=== PATIENT | male | born 1945 | race Caucasian/White ===

== ENCOUNTER → 2017-11-21 09:14 | Outpatient (CLI) | payer MEDICARE, SELFPAY ==
--- NOTE | 2017-11-21 | DI.ECHO.S_ITS ---
[facility]---------+ [facility] +---------+ : : [address] : : : [place], [place] : : : : [id number] : : : : Phone: [phone] Echocardiogram Report + + :Name: BRANDI HERRING Study Date: 11/21/2017 Height: 72 in : :[facility] Exam Location: [facility] Weight: 196 lb : : Gender: Male BSA: 2.1 m2 : :: 1945 Age: 72 yrs BP: 122/62 mmHg: :Reason For Study: MVP : : Performed By: Lorne Pino : :Referring: MICHAEL NUNEZ : + + Interpretation Summary Left ventricular size is at the upper limits of normal with systolic function that is low normal with the ejection fraction visually estimated to be 50-55% with septal motion consistent with a post-operative state but no other focal abnormality. Assessment of diastolic parameters indicates normal left ventricular diastolic function and normal filling pressures. Since the previous study, left ventricular size has markedly improved and systolic function is slightly less dynamic. There has been normalization of filling pressures. The right ventricle is at the upper limits of normal in size and right ventricular systolic function is normal, and appears unchanged compared to the previous study. The right ventricular systolic pressure is estimated at 26 mmHg assuming a right atrial pressure of 3 mm Hg, and which is markedly lower compared to the previous study. The left atrium is severely dilated and has significantly decreased in size since the prior echo exam. The right atrium is moderately dilated and has mildly decreased in size The posterior mitral leaflet is thickened and fixed, consistent with prior mitral repair surgery with only trace mitral regurgitation that is markedly improved compared to the previous study. There is mild tricuspid regurgitation that is unchanged from the previous study. There is mild pulmonic regurgitation that is slightly more prominent compared to the previous study. The ascending aorta and aortic arch are mild-moderately enlarged but essentially unchanged compared to the previous study. The patient was in sinus bradycardia with heart rates between 43-51 bpm during the exam which is slightly slower compared to the previous study. Procedure: A two-dimensional transthoracic echocardiogram with color flow and Doppler was performed. The study quality was technically good. Comparison is made with the echocardiogram of 12/09/16. The patient was in sinus bradycardia with heart rates between 43-51 bpm during the exam. This is slightly slower compared to the previous study. Left Ventricle: Left ventricular size is at the upper limits of normal. There is normal left ventricular wall thickness. Left ventricular systolic function is low normal. The ejection fraction is estimated to be 50-55%. Septal motion is consistent with post-operative state. Assessment of diastolic parameters indicates normal left ventricular diastolic function and normal filling pressures. Since the previous study, left ventricular size has markedly improved and systolic function is slightly less dynamic. There has been normalization of filling pressures. Right Ventricle: The right ventricle is at the upper limits of normal in size. The right ventricular systolic function is normal. This is unchanged compared to the previous study. Atria: The left atrium is severely dilated. The left atrium has significantly decreased in size since the prior echo exam. The right atrium is moderately dilated. The right atrium has mildly decreased in size since the prior echo exam. The interatrial septum is intact with no evidence for an atrial septal defect. Mitral Valve: The posterior mitral leaflet is thickened and fixed consistent with prior mitral repair surgery. An annuloplasty ring is noted in the mitral position. There is trace mitral regurgitation. This is markedly improved compared to the previous study. Aortic Valve: The aortic valve is trileaflet. The aortic valve opens well. No aortic regurgitation is present. Tricuspid Valve: The tricuspid valve is normal in structure and function. There is mild tricuspid regurgitation. The right ventricular systolic pressure is estimated at 26 mmHg assuming a right atrial pressure of 3 mm Hg. This is markedly lower compared to the previous study. Pulmonic Valve: The pulmonic valve is normal in structure and function. There is mild pulmonic regurgitation. This is slightly more prominent compared to the previous study. Great Vessels: The aortic root is normal size. The ascending aorta is mild- moderately enlarged. The aortic arch is mild-moderately enlarged. This is essentially unchanged compared to the previous study. The pulmonary artery is normal size. Pericardium/ Pleura There is no pericardial effusion. There is no pleural effusion. MMode/2D Measurements & Calculations LVIDd: 5.6 cm Ao root diam: 3.7 cm LVIDs: 4.0 cm Aortic Jxn: 2.8 cm FS: 28.7 % asc Aorta Diam: 4.0 cm EPSS: 0.18 cm Ao Arch Diam (Prox Trans): 3.4 cm IVSd: 1.1 cm LVPWd: 1.2 cm LV cazares. diameter/BSA (cm/m^2): 2.6 LV sys. diameter/BSA (cm/m^2): 1.9 LA A2 area: 27.5 cm2 RA long axis: 5.4 cm LA A4 area: 30.7 cm2 RA area: 23.4 cm2 LA length (vol): 6.3 cm RA vol: 85.3 ml LA vol: 114.4 ml RA : 40.4 ml/m2 LA vol index: 54.2 ml/m2 RVD1 (basal): 4.0 cm RVD2 (mid): 3.9 cm Doppler Measurements & Calculations Ao V2 max: 121.2 cm/sec LVOT Max Justo: 84.2 cm/sec Ao V2 mean: 98.4 cm/sec LV V1 max P.8 mmHg Ao max P.9 mmHg LV V1 VTI: 21.0 cm Ao mean P.0 mmHg sev ratio: 0.70 Ao V2 VTI: 29.8 cm MV E max justo: 103.8 cm/sec TR max justo: 237.9 cm/sec MV A max justo: 89.7 cm/sec TR max P.6 mmHg MV E/A: 1.2 PA V2 max: 77.5 cm/sec Med Peak E' Justo: 18.6 cm/sec PA V2 mean: 56.1 cm/sec E/E' med: 5.6 PA mean P.4 mmHg Lat Peak E' Justo: 6.9 cm/sec PA pr(Accel): 36.6 mmHg E/E' lat: 15.1 PA Accel Time: 0.08 sec E/e' average: 10.3 MV dec time: 0.36 sec Reading Physician:PM
== END ==
PROVIDERS: PCP Physician Assistant; Visit Provider Specialist
DX: I07.1 Rheumatic tricuspid insufficiency (principal); R00.1 Bradycardia, unspecified
CPT/HCPCS: 93306

== ENCOUNTER → 2018-03-07 09:09 | Outpatient (CLI) | payer MEDICARE, SELFPAY ==
[2018-03-07 11:44] LABS: Alanine Aminotransferase 33 IU/L (21-72); Albumin 3.9 g/dL (3.5-5.0); Albumin Globulin Ratio 1.9 (1.0-2.8); Alkaline Phosphatase 100 U/L (38-126); Aspartate Aminotransferase 29 IU/L (17-59); BUN Creatinine Ratio 18.6 (6-22); Bilirubin Total 0.8 mg/dL (0.2-1.3); Blood Urea Nitrogen 26 mg/dL (9-20); Calcium 9.7 mg/dL (8.4-10.2); Carbon Dioxide 28 mmol/L (22-32); Chloride 106 mmol/L (98-107); Estimated Glomerular Filt Rate 50.1 mL/min (>60); Globulin 2.1 g/dL (1.7-4.1); Glucose 102 mg/dL (80-110); HEMOLYSIS < 15 (0-50); Potassium 4.8 mmol/L (3.4-5.1); Sodium 145 mmol/L (137-145)
[2018-03-10 12:24] LABS: Lipoprofile NMR SEE SEPARATE REPORTS
--- NOTE | 2018-06-12 11:42 | ONC.NAV ---
*Sent bereavement card.
== END ==
PROVIDERS: PCP Physician Assistant; Visit Provider Specialist
DX: E78.2 Mixed hyperlipidemia (principal)
CPT/HCPCS: 36415; 80053; 83704

== ENCOUNTER 2018-03-13 23:31 | Emergency (ER) | payer MEDICARE, SELFPAY ==
[2018-03-13 23:37] VITALS: BP 128/78; PULSE 60; RESP 16; TEMP 37.1; O2SAT 97
--- NOTE | 2018-03-14 00:02 | DI.US.S_ITS ---
PROCEDURE: US ABDOMEN COMPLETE INDICATIONS: severe RUQ pain TECHNIQUE: Real-time scanning was performed of the abdominal and retroperitoneal organs, with image documentation. COMPARISON: [facility], CT, KUB - CT (PN), 10/15/2006, 21:23. FINDINGS: Liver: Liver is normal in size and homogeneous in echotexture. Gallbladder: The gallbladder is contracted. No gallstones. No pericholecystic fluid or sonographic Velasco's sign. Biliary ducts: Intrahepatic bile ducts are non-dilated. Extrahepatic bile duct caliber measures 5.8 mm. Normal is 6-7 mm or less in diameter, or 10 mm or less post-cholecystectomy. Pancreas: Visualized portions of the pancreas are sonographically normal. Spleen: Spleen is normal in size and homogeneous in echotexture. Kidneys: Right kidney is absent consistent with nephrectomy. Left kidney measures 12.0 cm long. No hydronephrosis or nephrolithiasis. No solid masses. Aorta: Visualized aorta is normal in caliber at less than 3 cm. Iliacs: Proximal common iliac arteries are normal in caliber at less than 2.5 cm. IVC: Intrahepatic inferior vena cava is obscured by overlying bowel gas. Miscellaneous: No free abdominal fluid. IMPRESSION: 1. Absence of right kidney consistent with nephrectomy. 2. No ultrasound findings to explain severe right upper quadrant abdominal pain. 3. Contracted gallbladder. Dictated by: Torrey Maciel M.D. on 03/14/2018 at 8:13 Approved by: Torrey Maciel M.D. on 03/14/2018 at 8:16
--- NOTE | 2018-03-14 00:36 | ED.ABDPAIN ---
HPI - Abdominal Pain General Chief Complaint: Abdominal Pain Stated Complaint: sharp pain in abdomen recent kidney removal Time Seen by Provider: 03/13/18 23:50 Source: patient and family Mode of arrival: ambulatory Limitations: no limitations History of Present Illness HPI narrative: 72-year-old male with history of renal cell carcinoma and mitral valve disease presents with a chief complaint of right upper quadrant pain for the past few days. Patient denies any palliation or radiation but states that is much worse with a deep breath or with a cough. He has had a cough for some time but denies any productive sputum or fever. He denies any shortness of breath. He denies nausea, vomiting or diarrhea. He has had no change in bowel habits nor and urinary complaints. He denies any history of the same. MD complaint: abdominal pain Onset (ago): day(s) Pain Consistency: intermittent Location: RUQ Severity: moderate Quality: stabbing and sharp Radiation: none Migration to: no migration Exacerbating factors: movement and other (Cough or deep breath) Associated symptoms: denies other symptoms Related Data Previous Rx's Medication Instructions Recorded doxycycline hyclate 100 mg PO BID #20 tab 03/14/18 Allergies Allergy/AdvReac Type Severity Reaction Status Date / Time No Known Drug Allergies Allergy Verified 03/13/18 23:41 Review of Systems Review of Systems All systems reviewed & are unremarkable except as noted in HPI and below Constitutional Denies chills, Denies fever(s), Denies lethargy and Denies weakness Eyes Denies change in vision, Denies eye discharge, Denies irritation and Denies loss of vision ENT Ears, Nose, Mouth, and Throat: Denies change in voice, Denies neck pain and Denies sore throat Cardiovascular Denies chest pain, Denies irregular heart rhythm, Denies lightheadedness, Denies palpitations, Denies dyspnea, Denies dyspnea on exertion and Denies orthopnea Respiratory Reports cough, Denies dyspnea, Denies dyspnea on exertion and Denies wheezing Gastrointestinal Gastrointestinal: Reports abdominal pain, Denies change in bowel habits, Denies diarrhea, Denies nausea and Denies vomiting Genitourinary Denies hematuria, Denies flank pain, Denies urinary incontinence and Denies urinary urgency Musculoskeletal Denies neck pain Integumentary/Breasts Denies pruritus, Denies erythema, Denies rash and Denies wounds Neurologic Denies confusion, Denies loss of vision and Denies weakness Psychiatric Denies anxiety, Denies confusion, Denies depression, Denies homicidal ideation and Denies suicidal ideation Endocrine Denies palpitations Hematologic/Lymphatic Denies easy bruising Allergic/Immunologic Denies wheezing PFSH Medical History Renal cell carcinoma (Acute) Surgical History History of nephrectomy (Acute) Social History Smoking Status: Former smoker Exam Narrative Exam Narrative: Pleasant 72-year-old male is largely absent of any significant distress but deep breath, cough resulted in the obvious significant sharp pain Initial Vital Signs Initial Vital Signs: Vital Signs Temperature 98.8 F 03/13/18 23:37 Pulse Rate 60 03/13/18 23:37 Respiratory Rate 16 03/13/18 23:37 Blood Pressure 128/78 03/13/18 23:37 Pulse Oximetry 97 03/13/18 23:37 Const General: cooperative, well developed and in distress Nutritional Appearance: well nourished Orientation: alert, awake, oriented x3 and not confused HENMT Head: normocephalic and atraumatic Ears: external ears normal and TM's normal bilaterally Nose: external nose normal and No nasal discharge Face and sinus: sinuses nontender, face symmetric, no sinus tenderness and No dry mucous membranes Mouth: oral mucosae normal and moist mucous membranes Teeth and gingiva: dentition normal Throat: tonsils normal and uvula midline Eyes General: appearance normal, both eyes and all related structures Eyelids: eyelids normal Conjunctivae: conjunctivae normal Sclera: sclerae normal Pupils: PERRL EOM: EOM intact bilaterally Chest Other: severe sharp pain with palpation of costal margin Resp Effort & Inspection: normal respiratory effort, able to speak in complete sentences, cough, no respiratory distress and no use of accessory muscles Auscultation: clear to auscultation bilaterally, no rales, no rhonchi and no wheezes Cardio Rate: regular rate Rhythm: regular rhythm Heart Sounds: no click, no gallops, no murmurs and no rubs Pulses: normal peripheral pulses GI Inspection: non-distended Palpation: soft, no hepatosplenomegaly, No guarding, No pulsatile mass and tender (RUQ pain to palp) Auscultation: normal bowel sounds Course Orders Ordered: ED Orders 03/13/18 23:49 Complete Blood Count AUTO DIFF Stat Comprehensive Metabolic Panel Stat Lipase Stat 03/14/18 00:02 US abdomen complete Stat 03/14/18 00:37 CT abdomen pelvis w con Stat Discontinued Medications Doxycycline Hyclate (Vibramycin) 100 mg PO NOW ONE Stop: 03/14/18 03:10 Last Admin: 03/14/18 03:29 Dose: 100 mg Sodium Chloride (Normal Saline 0.9%) 1,000 mls @ 150 mls/hr IV CONT ENRIQUE Last Infusion: 03/14/18 03:26 Dose: 1,000 mls/hr Admin: 03/14/18 01:31 Dose: 150 mls/hr Vital Signs - 8 hr 03/13/18 23:37 03/14/18 02:00 03/14/18 03:36 Temperature 98.8 F Pulse Rate 60 56 L 88 Respiratory Rate 16 18 17 Blood Pressure 128/78 Blood Pressure [Left Arm] 143/80 H 142/68 H Pulse Oximetry 97 98 MDM - Abdominal Pain Differential Diagnosis Differential diagnosis: Likely abdominal pain, acute appendicitis, calculus of kidney, constipation, diverticulitis, pancreatitis, small bowel obstruction and other Medical Records Attestation: I reviewed the patient's medical records. Lab Data Attestation: I reviewed the patient's lab results. Result diagrams: 03/14/18 00:55 03/14/18 00:55 Lab Results 03/14/18 03/14/18 Range/Units 00:55 00:55 WBC 9.5 (4.5-11.0) X10^3/uL RBC 4.40 L (4.5-5.9) X10^6/uL Hgb 13.1 L (13.5-17.5) g/dL Hct 38.7 L (41-53) % MCV 88.0 (80-100) fL MCH 29.7 (26-34) PG MCHC 33.8 (30-36) % RDW 13.1 (11.6-14.8) % Plt Count 181 (150-400) X10^3/uL Neut % (Auto) 68.8 (50-75) % Lymph % (Auto) 18.8 L (25-40) % [place] % (Auto) 9.1 (3-14) % Eos % (Auto) 2.7 (2-4) % Baso % (Auto) 0.6 (0-2) % Neut # (Auto) 6600 H (2184-6492) /uL Sodium 145 (137-145) mmol/L Potassium 4.4 (3.4-5.1) mmol/L Chloride 108 H (98-107) mmol/L Carbon Dioxide 30 (22-32) mmol/L BUN 30 H (9-20) mg/dL Creatinine 1.50 H (0.66-1.25) mg/dL Estimated GFR 46.3 L (>60) mL/min BUN/Creatinine Ratio 20.0 (6-22) Glucose 120 H (80-110) mg/dL Calcium 9.4 (8.4-10.2) mg/dL Total Bilirubin 0.4 (0.2-1.3) mg/dL AST 27 (17-59) IU/L ALT 32 (21-72) IU/L Alkaline Phosphatase 92 (38-126) U/L Total Protein 6.0 L (6.3-8.2) g/dL Albumin 3.7 (3.5-5.0) g/dL Globulin 2.3 (1.7-4.1) g/dL Albumin/Globulin Ratio 1.6 (1.0-2.8) Lipase 68 (23-300) U/L Point of care testing: Urine Dip Bedside Urine Glucose Negative Bedside Urine Bilirubin - Negative Bedside Urine Ketone - Negative Urine Specific [place] 1.025 Bedside Urine Occult Blood - Negative Bedside Urine pH 6.0 Bedside Urine Protein - Negative Bedside Urine Urobilinogen - Negative Bedside Urine Nitrite - Negative Bedside Urine Leukocytes - Negative Esterase Imaging Data CT scan - abdomen: Radiologist's impression: No acute intra-abdominal findings. Right nephrectomy with small area of soft tissue thickening and stranding likely postsurgical changes. Lower small right pleural effusion with minimal right lower lobe atelectasis, early infiltrate or pneumonia is not excluded US - abdomen: Radiologist's impression: Contracted gallbladder otherwise normal MDM Narrative Medical decision making narrative: Patient with extensive medical history presents with severe, reproducible sharp and stabbing right upper quadrant pain with palpation, cough or deep breath. He has had no productive cough nor fever or chills. He denies nausea or vomiting. Ultrasound demonstrates an essentially normal ultrasound, labs are normal, CT of abdomen suggest pleural effusion with atelectasis and possible infiltrate. Differential diagnosis considered includes postsurgical complications, gallbladder disease, bowel problems, pleuritic diagnoses such is pneumonia versus other Discharge Plan Departure Patient Disposition: Home Clinical Impression: Pneumonia Discharge Date/Time: 03/14/18 03:39 Interventions: ED Discharge Assessment Last Done: 03/14/18 03:38 Instructions: DI for Pneumonia -- Adult Activity Restrictions/Additional Instructions: *You have been diagnosed with [ right lower lobe pneumonia with pleurisy ] *What to do: *Take medications as directed. Your prescription has been electronically transmitted to the [facility] and not pertinent request *Follow up with your primary care provider in 2-3 days, call for an appointment. Let them know you were seen in the Emergency Department and that we ask that you be seen in follow up *Return to ER if you should have any new, worsening or concerning symptoms, such as [ ] Prescriptions: New doxycycline hyclate 100 mg tablet 100 mg PO BID Qty: 20 RF: 0 Referrals: Judy Leach PA-C [Primary Care Provider] -
--- NOTE | 2018-03-14 00:37 | DI.CT.S_ITS ---
PROCEDURE: CT ABDOMEN PELVIS W CON INDICATIONS: 72 old male with severe right flank pain, recent nephrectomy. TECHNIQUE: After the administration of intravenous contrast, 5 mm thick sections acquired from the diaphragm to the symphysis. 5 mm coronal and sagittal reformats were acquired. For radiation dose reduction, the following was used: automated exposure control, adjustment of mA and/or kV according to patient size. COMPARISON: [facility], US, US ABDOMEN COMPLETE, 03/14/2018, 0:24. [facility], CT, KUB - CT (PNL), 10/15/2006, 21:23. FINDINGS: Image quality: Excellent. ABDOMEN: Lung bases: Right lower lobe opacity may be infiltrate or atelectasis. There is a small right effusion. Heart size is mildly increased. Solid organs: There are multiple small indeterminate low-density nodules in liver. Liver is normal in size and enhancement. Gallbladder is normal. Biliary system is non dilated. Pancreas enhances normally. Spleen is normal in size and enhancement. No adrenal nodules. Right kidney is surgically absent. Left kidney demonstrates normal size and enhancement. Several renal calculi are present measuring up to 5 mm. There is mild left renal pelviectasis. Peritoneum and bowel: Stomach is mildly distended. There is mild gastric antral thickening. Bowel loops demonstrate normal caliber. Pharyngeal numerous colonic diverticula scattered in colon. No evidence for acute diverticulitis. Moderate to large amount of stool in colon. No free fluid or air. Nodes and vessels: No retroperitoneal or mesenteric adenopathy by size criteria. Aorta and inferior vena cava are normal in size. Miscellaneous: No ventral hernias. PELVIS: Genitourinary: Bladder wall thickness is normal. Miscellaneous: No inguinal hernias or adenopathy. Bones: No suspicious bony lesions. No vertebral body compression fractures. Degenerative changes noted in lumbar spine. IMPRESSION: 1. Absence of right kidney consistent with right nephrectomy. 2. Right basilar pneumonia or atelectasis. There is a small right effusion. 3. Left nephrolithiasis. There is mild left pelviectasis. 4. Diverticulosis without acute diverticulitis. 5. Mild gastric antral thickening which may be secondary to artifact (peristalsis) or mild antritis. 6. Small indeterminate low density nodules in liver are most likely hepatic cysts. No significant discrepancy with the [facility]ifter radiology preliminary report. Dictated by: Torrey Maciel M.D. on 03/14/2018 at 8:00 Approved by: Torrey Maciel M.D. on 03/14/2018 at 8:13
[2018-03-14 01:05] LABS: Add Manual Diff / Slide Review NO; Basophils Percent Auto 0.6 % (0-2); Eosinophils Percent Auto 2.7 % (2-4); Hematocrit 38.7 % (41-53); Hemoglobin 13.1 g/dL (13.5-17.5); Lymphocytes Percent Auto 18.8 % (25-40); Mean Corpuscular HGB Conc 33.8 % (30-36); Mean Corpuscular Hemoglobin 29.7 PG (26-34); Monocytes Percent Auto 9.1 % (3-14); Neutrophils Absolute Auto 6600 /uL (3000-5900); Neutrophils Percent Auto 68.8 % (50-75); Platelet Count 181 X10^3/uL (150-400); Red Cell Distribution Width 13.1 % (11.6-14.8); White Blood Cell Count 9.5 X10^3/uL (4.5-11.0)
[2018-03-14 01:09] LABS: Alanine Aminotransferase 32 IU/L (21-72); Albumin 3.7 g/dL (3.5-5.0); Albumin Globulin Ratio 1.6 (1.0-2.8); Alkaline Phosphatase 92 U/L (38-126); Aspartate Aminotransferase 27 IU/L (17-59); Bilirubin Total 0.4 mg/dL (0.2-1.3); Blood Urea Nitrogen 30 mg/dL (9-20); Calcium 9.4 mg/dL (8.4-10.2); Carbon Dioxide 30 mmol/L (22-32); Chloride 108 mmol/L (98-107); Estimated Glomerular Filt Rate 46.3 mL/min (>60); Globulin 2.3 g/dL (1.7-4.1); Glucose 120 mg/dL (80-110); HEMOLYSIS 16 (0-50); Lipase 68 U/L (23-300); Potassium 4.4 mmol/L (3.4-5.1); Sodium 145 mmol/L (137-145)
[2018-03-14] MEDS: SODIUM CHLORIDE 0.9% 1,000 ML 150 ML IV (01:31)
[2018-03-14 02:00] VITALS: BP 143/80; PULSE 56; RESP 18; O2SAT 98
[2018-03-14] MEDS: DOXYCYCLINE HYCLATE 100 MG TABLET PO (03:29)
[2018-03-14 03:36] VITALS: BP 142/68; PULSE 88; RESP 17
== END 2018-03-14 03:39 | disposition home or self-care (01) ==
PROVIDERS: Emergency Provider Emergency Medicine; PCP Physician Assistant
DX: J18.9 Pneumonia, unspecified organism (principal)
CPT/HCPCS: 36591; 74177; 76700; 80053; 81003; 83690; 85025; 96360; 96361; 99283; 99285; Q9967

== ENCOUNTER → 2018-03-28 09:02 | Outpatient (CLI) | payer MEDICARE, SELFPAY ==
--- NOTE | 2018-03-28 | DI.RAD.S_ITS ---
PROCEDURE: XR RIBS RT 2V with PA chest INDICATIONS: Intercostal pain/Dorsalgia TECHNIQUE: 4 views of the right ribs were acquired, in addition to a PA frontal view chest presumed prior CABG.. COMPARISON: None. FINDINGS: Surgical changes and devices: Sternotomy wires,. Bones and chest wall: No fractures or dislocations. No suspicious bony lesions. Overlying soft tissues appear unremarkable. Lungs and pleura: The visualized lung appears clear. No pleural effusions or pneumothorax are visible. IMPRESSION: Prior sternotomy, presumed prior CABG. Source of intercostal and dorsal pain is not seen. Dictated by: Kofi Garduno M.D. on 03/28/2018 at 9:43 Approved by: Kofi Garduno M.D. on 03/28/2018 at 9:44
--- NOTE | 2018-03-28 | DI.RAD.S_ITS ---
PROCEDURE: XR LUMBAR SPINE 2-3V INDICATIONS: Intercostal pain/Dorsalgia TECHNIQUE: 3 views of the lumbar spine were acquired. COMPARISON: [facility], US, US ABDOMEN COMPLETE, 03/14/2018, 0:24. [facility], CR, XR RIBS RT 2V, 03/28/2018, 8:45. [facility], CT, CT ABDOMEN PELVIS W CON, 03/14/2018, 0:55. [facility], CT, KUB - CT (PNL), 10/15/2006, 21:23. FINDINGS: Bones: 5 [id number] vertebrae are present. There is normal bony alignment. There are adjacent L1-L2 vertebral body endplate mild compression fractures, chronicity uncertain. No suspicious bony lesions. Soft tissues: Overlying bowel gas pattern is normal. No suspicious soft tissue calcifications. IMPRESSION: L1-L2 mild vertebral body endplates adjacent compression fractures, chronicity uncertain. These were not present on CT KUB imaging 10/15/16, 11 years ago. A comparison set of sagittal views through this area from 03/14/18 is reviewed, and what appears to be a short term interval worsening of appearance at that intervertebral level is present on the study from today. Therefore, suspect acute mild compression fracture at the upper endplate of L2 and the lower endplate of L1. MR scanning could be utilized to accurately establish whether the abnormalities are chronic or acute. Dictated by: Kofi Garduno M.D. on 03/28/2018 at 9:44 Approved by: Kofi Garduno M.D. on 03/28/2018 at 9:52
== END ==
PROVIDERS: PCP Physician Assistant; Visit Provider Physician Assistant
DX: R07.82 Intercostal pain (principal); M54.9 Dorsalgia, unspecified; M48.56XA Collapsed vertebra, not elsewhere classified, lumbar region, initial encounter for fracture
CPT/HCPCS: 71100; 72100

== ENCOUNTER 2018-03-29 13:40 | Emergency (ER) | payer MEDICARE, SELFPAY ==
[2018-03-29 13:42] VITALS: BP 128/78; PULSE 70; RESP 18; TEMP 36.7; O2SAT 98; BMI 26.4
--- NOTE | 2018-03-29 14:01 | DI.RAD.S_ITS ---
PROCEDURE: XR CHEST 2V INDICATIONS: h/o right basilar pne vs atelectasis. No better after treatm TECHNIQUE: 2 views of the chest were acquired. COMPARISON: [facility], CT, CT ABDOMEN PELVIS W CON, 03/14/2018, 0:55. [facility], CR, XR RIBS RT 2V, 03/28/2018, 8:45. FINDINGS: Surgical changes and devices: Sternal wires. Lungs and pleura: No pleural effusions or pneumothorax. Lungs are clear. Mediastinum: Mediastinal contours are normal. Heart size is normal. Bones and chest wall: No suspicious bony abnormalities. Soft tissues appear unremarkable. IMPRESSION: No acute pulmonary process. Dictated by: Poonam Tamez M.D. on 03/29/2018 at 14:52 Approved by: Poonam Tamez M.D. on 03/29/2018 at 14:53
[2018-03-29 14:18] LABS: Hematocrit 38.9 % (41-53); Mean Corpuscular HGB Conc 33.5 % (30-36); Mean Corpuscular Hemoglobin 29.3 PG (26-34); Mean Corpuscular Volume 87.6 fL (80-100); Platelet Count 174 X10^3/uL (150-400); Red Blood Cell Count 4.45 X10^6/uL (4.5-5.9); White Blood Cell Count 11.7 X10^3/uL (4.5-11.0)
[2018-03-29 14:34] LABS: Alanine Aminotransferase 33 IU/L (21-72); Albumin 3.5 g/dL (3.5-5.0); Albumin Globulin Ratio 1.5 (1.0-2.8); Alkaline Phosphatase 106 U/L (38-126); Aspartate Aminotransferase 29 IU/L (17-59); BUN Creatinine Ratio 20.8 (6-22); Bilirubin Total 0.6 mg/dL (0.2-1.3); Blood Urea Nitrogen 27 mg/dL (9-20); Calcium 9.6 mg/dL (8.4-10.2); Carbon Dioxide 26 mmol/L (22-32); Chloride 107 mmol/L (98-107); Estimated Glomerular Filt Rate 54.6 mL/min (>60); Globulin 2.3 g/dL (1.7-4.1); Glucose 124 mg/dL (80-110); HEMOLYSIS < 15 (0-50); Potassium 3.8 mmol/L (3.4-5.1); Sodium 146 mmol/L (137-145); Total Protein 5.8 g/dL (6.3-8.2)
[2018-03-29 14:44] LABS: Neutrophils Absolute Manual 9009 /uL (3000-5900); Total Cells Counted 100
[2018-03-29 14:46] LABS: RBC Morphology Normal Morphology
--- NOTE | 2018-03-29 15:29 | DI.MRI.S_ITS ---
PROCEDURE: MR LUMBAR SPINE WO/W CON INDICATIONS: back pain, radiates to front, hx nephrectomy 2nd ca TECHNIQUE: Noncontrast sagittal T1 spin echo and T2 fast spin echo, sagittal STIR, axial T1 and T2 fast spin echo through the lumbar spine. In cases with scoliosis, additional coronal T2 fast spin echo may be performed. After the administration of contrast, sagittal and axial T1 spin echo with fat saturation through the lumbar spine. COMPARISON: [facility], CT, CT ABDOMEN PELVIS W CON, 03/14/2018, 0:55. [facility], CR, XR CHEST 2V, 03/29/2018, 13:46. [facility], CR, XR LUMBAR SPINE 2-3V, 03/28/2018, 8:45. FINDINGS: Image quality: Excellent. Alignment and curvature: There is normal bony alignment. Marrow: Innumerable foci of abnormal signal can be seen within the bones, with low T1 signal and increased T2-weighted/STIR signal, increased enhancement. Most of these demonstrate a rounded appearance. However, there is relatively prominent involvement of the L1 level on the right side, with also involvement of the posterior elements, as on series 9 image 37. At L2, the majority of the vertebral body is involved. There is a compression deformity seen involving the L1 level, with 30-40% loss height centrally. No posterior displacement fracture fragments can be seen. Spinal cord: Conus medullaris terminates at the L1 level. Visualized spinal cord demonstrates normal signal, without suspicious enhancement. Paraspinous soft tissues: No paravertebral masses or abnormal enhancement. T12-L1: Moderate loss of disc height is seen. Loss of disc signal is seen. Moderate generalized disc bulge is seen. Minimal to mild bilateral neural foraminal narrowing is seen. Moderate central canal narrowing is seen, as on series 6 image 40. L1-L2: At least moderate loss of disc height and disc signal are seen. Moderate disc bulge is seen, which is eccentric to the left. Kxqe-mj-vtlzfuyd facet joint hypertrophy is seen. There is moderate bilateral neural foraminal narrowing seen, left worse than right. Mild central canal narrowing is seen. L2-L3: Mild loss of disc height is seen. Loss of disc signal is seen. Moderate disc bulge is seen, which is eccentric to the right. Mild facet joint hypertrophy is seen. Moderate to severe bilateral neural foraminal narrowing is seen. There is a degree of impingement seen upon the exiting nerve roots. Moderate to severe central canal narrowing is seen. L3-L4: Moderate loss of disc height is seen. Loss of disc signal is seen. Moderate to prominent disc bulge is seen. Moderate to prominent facet hypertrophy is seen. There is moderate to severe bilateral neural foraminal narrowing seen, right worse than left. There is a degree of impingement seen upon the exiting nerve roots. At least moderate central canal narrowing is seen. L4-L5: Moderate to severe loss of disc height is seen. Loss of disc signal is seen. Moderate disc bulge is seen, which is eccentric to the right. Vlyd-py-nqmezmnj facet hypertrophy is seen. There is moderate to severe bilateral neural foraminal narrowing seen, right greater than left. There is a degree of impingement seen upon the exiting nerve roots. Mild central canal narrowing is seen. L5-S1: Moderate loss of disc height is seen. Loss of disc signal is seen. Moderate generalized disc bulge is seen. Moderate facet hypertrophy is seen, left worse than right. There is at least moderate right-sided and moderate to severe left-sided neural foraminal narrowing seen. There is a degree of impingement seen upon the exiting nerve roots. Mild central canal narrowing is seen. IMPRESSION: Innumerable sites of bony metastatic disease until proven otherwise. These are most prominent within the L1 and L2 levels. L1 compression deformity, which is felt most likely be related to a pathologic compression deformity. Multiple levels of degenerative change are seen, including multiple sites of moderate to severe neural foraminal narrowing. Note: Case discussed by telephone with Dr. Mayfield at 4:58 PM on March 29, 2018. Dictated by: Andres Christianson M.D. on 03/29/2018 at 16:49 Approved by: Andres Christianson M.D. on 03/29/2018 at 16:59
--- NOTE | 2018-03-29 15:32 | ED.BACK ---
HPI - Back Pain/Injury General Chief Complaint: Abdominal Pain Stated Complaint: BACK AND RIGHT SIDED RIB PAIN Time Seen by Provider: 03/29/18 15:13 Source: patient Mode of arrival: ambulatory Limitations: no limitations History of Present Illness HPI Narrative: This a 72-year-old male comes to the emergency department with complaint of back pain that radiates to the front on the right. Patient states he has low back pain in the lumbar region and points to L4-L5. He has radiation around to the front on the right. He does have a history of nephrectomy secondary to renal cancer. He does follow with a dust operator for surveillance his last imaging was in the spring. He was evaluated here and was found to have a compression fracture but does not have any recent trauma or injuries that would have likely caused his compression fracture. There is concern about metastases patient was sent evaluation in the ED. Fevers, no cold cough or congestion. No nausea or vomiting. He has recently had a little bit of diarrhea. No new urinary issues. His back pain is actually improved while he has been here in the emergency department without medication. Still has a little bit of right rib pain which he states he does notice. Movement definitely made his symptoms worse although there are improved at this time. He also has a history significant for CABG as well as valve repair. He does not have a valve replacement. He is not on any blood thinners or anticoagulation. Related Data Home Medications Medication Instructions Recorded Confirmed atorvastatin 80 mg PO QPM 03/29/18 03/29/18 tamsulosin 1 cap PO QPM 03/29/18 03/29/18 triamcinolone acetonide 1 applic TOPICAL DIRECTED 03/29/18 03/29/18 Previous Rx's Medication Instructions Recorded oxycodone-acetaminophen 1 tab PO Q4-6H PRN #20 tab 03/29/18 Allergies Allergy/AdvReac Type Severity Reaction Status Date / Time No Known Drug Allergies Allergy Verified 03/13/18 23:41 Review of Systems Review of Systems All systems reviewed & are unremarkable except as noted in HPI and below Constitutional Denies fatigue, Denies fever(s) and Denies night sweats Cardiovascular Denies chest pain, Denies irregular heart rhythm, Denies lightheadedness, Denies palpitations, Denies dyspnea, Denies dyspnea on exertion and Denies orthopnea Respiratory Denies cough, Denies dyspnea, Denies dyspnea on exertion and Denies wheezing Gastrointestinal Gastrointestinal: Denies abdominal pain, Denies change in bowel habits, Reports diarrhea, Denies nausea and Denies vomiting Musculoskeletal Reports as per HPI, Denies abnormal gait, Reports back pain, Denies limited range of motion, Denies numbness and Denies tingling Integumentary/Breasts Reports rash Neurologic Denies abnormal gait, Denies numbness and Denies tingling Endocrine Denies fatigue and Denies palpitations Allergic/Immunologic Denies wheezing PFSH Medical History Renal cell carcinoma (Acute) Surgical History Hx of CABG (Acute) History of nephrectomy (Acute) Social History Smoking Status: Former smoker Exam Initial Vital Signs Initial Vital Signs: Vital Signs Temperature 98.1 F 03/29/18 13:42 Pulse Rate 70 03/29/18 13:42 Respiratory Rate 18 03/29/18 13:42 Blood Pressure 128/78 03/29/18 13:42 Pulse Oximetry 98 03/29/18 13:42 Const General: cooperative, comfortable and well developed Nutritional Appearance: well nourished Orientation: alert, awake, oriented x3 and not confused Resp Effort & Inspection: normal respiratory effort, able to speak in complete sentences, no respiratory distress and no use of accessory muscles Auscultation: clear to auscultation bilaterally, no rales, no rhonchi and no wheezes Cardio Rate: regular rate Rhythm: regular rhythm Heart Sounds: no click, no gallops, no murmurs and no rubs Pulses: normal peripheral pulses GI Inspection: non-distended Palpation: soft, no hepatosplenomegaly, No guarding, No pulsatile mass and No tender Auscultation: normal bowel sounds Back/Spine/Pelvis Back: normal to inspection, No back tenderness, No CVA tenderness and No mass Cervical Spine: No cervical spinal tenderness Thoracic/Lumbar Spine: thoracic and lumbar spine normal to inspection, No thoraco-lumbar ROM limited, No thoraco-lumbar spasm, No thoracic spinal tenderness and No lumbar spinal tenderness Sacroiliac Joints: nontender Skin Rashes: rash noted (Back or abdomen) Neuro Gait: normal gait Course Orders Ordered: ED Orders 03/29/18 14:01 Chest [XR chest 2V] Stat 03/29/18 14:09 CBC manual diff [Complete Blood Count MAN DIFF] Stat Comprehensive Metabolic Panel Stat 03/29/18 15:29 MR lumbar spine wo/w con Stat Consultations Consultation #1: Dr. Gottlieb was paged. He will contact office to have patient set up with an appointment for follow up. Time: 18:23 Vital Signs - 8 hr 03/29/18 13:42 03/29/18 16:40 03/29/18 18:19 Temperature 98.1 F Pulse Rate 70 62 72 Respiratory Rate 18 20 Blood Pressure 128/78 148/83 H Blood Pressure [Right Arm] 115/63 Pulse Oximetry 98 99 98 MDM - Back Pain/Injury Lab Data Attestation: I reviewed the patient's lab results. Result diagrams: 03/29/18 14:09 03/29/18 14:09 Lab Results 03/29/18 03/29/18 Range/Units 14:09 14:09 WBC 11.7 H (4.5-11.0) X10^3/uL RBC 4.45 L (4.5-5.9) X10^6/uL Hgb 13.0 L (13.5-17.5) g/dL Hct 38.9 L (41-53) % MCV 87.6 (80-100) fL MCH 29.3 (26-34) PG MCHC 33.5 (30-36) % RDW 13.0 (11.6-14.8) % Plt Count 174 (150-400) X10^3/uL Total Counted 100 Seg Neutrophils % 77.0 H (38-70) % Lymphocytes % (Manual) 8.0 L (25-45) % Atypical Lymphs % 2.0 H ( - 0) % Monocytes % (Manual) 11.0 (2-11) % Eosinophils % (Manual) 2.0 (2-4) % Neutrophils # (Manual) 9009 H (4277-6892) /uL RBC Morphology Normal morphology Sodium 146 H (137-145) mmol/L Potassium 3.8 (3.4-5.1) mmol/L Chloride 107 (98-107) mmol/L Carbon Dioxide 26 (22-32) mmol/L BUN 27 H (9-20) mg/dL Creatinine 1.30 H (0.66-1.25) mg/dL Estimated GFR 54.6 L (>60) mL/min BUN/Creatinine Ratio 20.8 (6-22) Glucose 124 H (80-110) mg/dL Calcium 9.6 (8.4-10.2) mg/dL Total Bilirubin 0.6 (0.2-1.3) mg/dL AST 29 (17-59) IU/L ALT 33 (21-72) IU/L Alkaline Phosphatase 106 (38-126) U/L Total Protein 5.8 L (6.3-8.2) g/dL Albumin 3.5 (3.5-5.0) g/dL Globulin 2.3 (1.7-4.1) g/dL Albumin/Globulin Ratio 1.5 (1.0-2.8) Imaging Data MRI - lumbar: Radiologist's impression: [address] [address] Magnetic Resonance Report Signed Patient: Toy Barrera#: [id number] : 7Acct:[id number] Age/Sex: 72 / MDate of Service: 03/29/18 Loc: ED Accession Number: [id number] Procedure: MR lumbar spine wo/w con Ordering Provider: Alpa Mayfield D.O. PROCEDURE: MR LUMBAR SPINE WO/W CON INDICATIONS: back pain, radiates to front, hx nephrectomy 2nd ca TECHNIQUE: Noncontrast sagittal T1 spin echo and T2 fast spin echo, sagittal STIR, axial T1 and T2 fast spin echo through the lumbar spine. In cases with scoliosis, additional coronal T2 fast spin echo may be performed. After the administration of contrast, sagittal and axial T1 spin echo with fat saturation through the lumbar spine. COMPARISON: [facility], CT, CT ABDOMEN PELVIS W CON, 03/14/2018, 0:55. [facility], CR, XR CHEST 2V, 03/29/2018, 13:46. [facility], CR, XR LUMBAR SPINE 2-3V, 03/28/2018, 8:45. FINDINGS: Image quality: Excellent. Alignment and curvature: There is normal bony alignment. Marrow: Innumerable foci of abnormal signal can be seen within the bones, with low T1 signal and increased T2-weighted/STIR signal, increased enhancement. Most of these demonstrate a rounded appearance. However, there is relatively prominent involvement of the L1 level on the right side, with also involvement of the posterior elements, as on series 9 image 37. At L2, the majority of the vertebral body is involved. There is a compression deformity seen involving the L1 level, with 30-40% loss height centrally. No posterior displacement fracture fragments can be seen. Spinal cord: Conus medullaris terminates at the L1 level. Visualized spinal cord demonstrates normal signal, without suspicious enhancement. Paraspinous soft tissues: No paravertebral masses or abnormal enhancement. T12-L1: Moderate loss of disc height is seen. Loss of disc signal is seen. Moderate generalized disc bulge is seen. Minimal to mild bilateral neural foraminal narrowing is seen. Moderate central canal narrowing is seen, as on series 6 image 40. L1-L2: At least moderate loss of disc height and disc signal are seen. Moderate disc bulge is seen, which is eccentric to the left. Ritx-bl-wkjjtyqy facet joint hypertrophy is seen. There is moderate bilateral neural foraminal narrowing seen, left worse than right. Mild central canal narrowing is seen. L2-L3: Mild loss of disc height is seen. Loss of disc signal is seen. Moderate disc bulge is seen, which is eccentric to the right. Mild facet joint hypertrophy is seen. Moderate to severe bilateral neural foraminal narrowing is seen. There is a degree of impingement seen upon the exiting nerve roots. Moderate to severe central canal narrowing is seen. L3-L4: Moderate loss of disc height is seen. Loss of disc signal is seen. Moderate to prominent disc bulge is seen. Moderate to prominent facet hypertrophy is seen. There is moderate to severe bilateral neural foraminal narrowing seen, right worse than left. There is a degree of impingement seen upon the exiting nerve roots. At least moderate central canal narrowing is seen. L4-L5: Moderate to severe loss of disc height is seen. Loss of disc signal is seen. Moderate disc bulge is seen, which is eccentric to the right. Sghq-qm-ajmgvsqf facet hypertrophy is seen. There is moderate to severe bilateral neural foraminal narrowing seen, right greater than left. There is a degree of impingement seen upon the exiting nerve roots. Mild central canal narrowing is seen. L5-S1: Moderate loss of disc height is seen. Loss of disc signal is seen. Moderate generalized disc bulge is seen. Moderate facet hypertrophy is seen, left worse than right. There is at least moderate right-sided and moderate to severe left-sided neural foraminal narrowing seen. There is a degree of impingement seen upon the exiting nerve roots. Mild central canal narrowing is seen. IMPRESSION: Innumerable sites of bony metastatic disease until proven otherwise. These are most prominent within the L1 and L2 levels. L1 compression deformity, which is felt most likely be related to a pathologic compression deformity. Multiple levels of degenerative change are seen, including multiple sites of moderate to severe neural foraminal narrowing. Note: Case discussed by telephone with Dr. Mayfield at 4:58 PM on March 29, 2018. Dictated by: Andres Christianson M.D. on 03/29/2018 at 16:49 Approved by: Andres Chrisitanson M.D. on 03/29/2018 at 16:59 [facility] Narrative Medical decision making narrative: Patient's lab work does not show any acute abnormalities he does have a decreased GFR but is improved from his last. BUN is also slightly elevated but this is similar to prior. Patient's imaging was reviewed from recent evaluation and they did recommend MRI for further evaluation and he has no prior trauma that is consistent with a compression fracture. So plan for evaluation here. As patient only has a single kidney elected not to use contrast. rfid technician past Radiology if they would prefer contrast and they were comfortable with it with patient's history of nephrectomy. Patient and were updated that he does have metastases on his L-spine imaging of his MRI. Patient was asked to call his primary care physician in the morning to help set up follow-up and a consult was put out to Oncology for urgent follow-up. Discharge Plan Departure Patient Disposition: Home Clinical Impression: Back pain, Malignant neoplasm metastatic to lumbar spine with unknown primary site Discharge Date/Time: 03/29/18 18:20 Interventions: ED Discharge Assessment Last Done: 03/29/18 18:19 Activity Restrictions/Additional Instructions: Call in the morning to set up follow-up with Judy Leach. Take the disc with your MRI results with you as well. Use also expect a phone call from Oncology if you not heard from them by tomorrow at noon go ahead and call the oncology office. They will want to follow up regarding your metastatic changes and setting up further evaluation. Take medication as needed for pain. This medication can make you sleepy do not drive, perform hazards activities or make any major decisions while taking it. Make sure the take a stool softener with this medication. Prescriptions: New oxycodone-acetaminophen 5-325 mg tablet 1 tab PO Q4-6H PRN (Reason: pain) Qty: 20 RF: 0 No Action atorvastatin 80 mg tablet 80 mg PO QPM RF: 0 triamcinolone acetonide 0.5 % cream 1 applic Topical DIRECTED RF: 0 tamsulosin 0.4 mg capsule 1 cap PO QPM RF: 0 Referrals: Miguel Schumacher MD [Physician] - Judy Leach PA-C [Primary Care Provider] -
[2018-03-29 16:40] VITALS: BP 115/63; PULSE 62; O2SAT 99
[2018-03-29 18:19] VITALS: BP 148/83; PULSE 72; RESP 20; O2SAT 98
== END 2018-03-29 18:20 | disposition home or self-care (01) ==
PROVIDERS: Emergency Provider Emergency Medicine; Family Provider Family Medicine; PCP Physician Assistant
DX: C79.51 Secondary malignant neoplasm of bone (principal); C80.1 Malignant (primary) neoplasm, unspecified; M54.9 Dorsalgia, unspecified
CPT/HCPCS: 36591; 71046; 72158; 80053; 85025; 99282; 99285

== ENCOUNTER 2018-05-07 08:01 | Emergency (ER) | payer MEDICARE, SELFPAY ==
[2018-05-07 08:09] VITALS: BP 131/80; PULSE 85; RESP 16; TEMP 36.9; O2SAT 93; BMI 23.0
--- NOTE | 2018-05-07 08:26 | ED.BACK ---
HPI - Back Pain/Injury General Chief Complaint: Back Pain/Injury Stated Complaint: alot of pain/ has cancer Time Seen by Provider: 05/07/18 08:15 Source: patient and family Mode of arrival: ambulatory Limitations: no limitations History of Present Illness HPI Narrative: This is a 72-year-old male who comes to the emergency department with increased pain secondary to metastases to the bone. He is very uncomfortable and had trouble ambulating secondary to pain. Patient has been seen at [facility]. the are doing some palliative treatment but they have been told that his cancer is not treatable. Patient has been taking oxycodone and morphine orally. In the last 24-48 hours his pain is been increasing on the been unable to control it at home. He was having issues with vomiting but has been able to keep stuff down for the last 36 hr. He does have what sounds like Zofran 0 DT. No fevers that they are aware of. They state his white count has been increasing which they were told was from the treatments and cancer. Patient has not been eating or drinking very much at all. Patient has not been having regular bowel movements but did have 2 this week the most recent was yesterday. He has been urinating. Related Data Home Medications Medication Instructions Recorded Confirmed atorvastatin 80 mg PO QPM 03/29/18 03/29/18 tamsulosin 1 cap PO QPM 03/29/18 03/29/18 triamcinolone acetonide 1 applic TOPICAL DIRECTED 03/29/18 03/29/18 Previous Rx's Medication Instructions Recorded oxycodone-acetaminophen 1 tab PO Q4-6H PRN #20 tab 03/29/18 fentanyl 1 patch TRANSDERMAL Q72H #5 each 05/07/18 Allergies Allergy/AdvReac Type Severity Reaction Status Date / Time No Known Drug Allergies Allergy Verified 05/07/18 08:09 Review of Systems Review of Systems All systems reviewed & are unremarkable except as noted in HPI and below Constitutional Denies chills, Reports daytime sleepiness, Denies fever(s) (Had a fever earlier in the week), Reports poor appetite and Denies weakness Cardiovascular Denies chest pain, Denies dyspnea and Denies dyspnea on exertion Respiratory Denies cough, Denies dyspnea, Denies dyspnea on exertion and Denies wheezing Gastrointestinal Gastrointestinal: Denies abdominal pain, Reports constipation, Reports nausea and Reports vomiting Genitourinary Denies difficulty urinating Musculoskeletal Reports back pain, Reports limited range of motion and Reports stiffness Integumentary/Breasts Denies rash Neurologic Reports confusion and Denies weakness Psychiatric Reports confusion Allergic/Immunologic Denies wheezing [facility] Medical History Renal cell carcinoma (Acute) Surgical History History of nephrectomy (Acute) Hx of CABG (Acute) Social History Smoking Status: Former smoker Exam Narrative Exam Narrative: GENERAL: Alert and oriented x three, male and appears to have lost weight since I last saw him, moderate distress. HEENT: Head normocephalic, atraumatic, EOMI, pupils reactive, face symmetric, moist mucous membranes NECK: Supple, full range of motion CARDIOVASCULAR: Regular rate and rhythm without murmurs, rubs or gallops. RESPIRATORY: Breath sounds equal bilaterally, no wheezes rales or rhonchi. ABDOMEN: Soft, nontender. Normoactive bowel sounds all 4 quadrants. No guarding or rebound, rigidity, no mass : No CVA tenderness EXTREMITIES: Normal range of motion, no clubbing or edema. 2+ pulses upper and lower extremities. [employer] is equal bilaterally. Patient has full range of motion of upper extremities. Patient has range of motion of lower extremities. Neurovascularly intact NEUROLOGICAL: Cranial nerves II through XII grossly intact. Moving all extremities SKIN: Warm, dry, no petechiae, no rashes or lesions. Initial Vital Signs Initial Vital Signs: Vital Signs Temperature 98.4 F 05/07/18 08:09 Pulse Rate 85 05/07/18 08:09 Respiratory Rate 16 05/07/18 08:09 Blood Pressure 131/80 05/07/18 08:09 Pulse Oximetry 93 05/07/18 08:09 Course Orders Ordered: Discontinued Medications Fentanyl (Duragesic) 25 mcg TOP NOW ONE Stop: 05/07/18 11:51 Last Admin: 05/07/18 12:03 Dose: 25 mcg Hydromorphone HCl (Dilaudid) 1 mg IV NOW ONE Stop: 05/07/18 08:26 Last Admin: 05/07/18 08:37 Dose: 1 mg Hydromorphone HCl (Dilaudid) 1 mg IV NOW ONE Stop: 05/07/18 10:30 Last Admin: 05/07/18 10:30 Dose: 1 mg Sodium Chloride (Normal Saline 0.9%) 1,000 mls @ 1,000 mls/hr IV BOLUS ONE Stop: 05/07/18 09:27 Last Infusion: 05/07/18 10:30 Dose: 0 mls/hr Admin: 05/07/18 08:37 Dose: 1,000 mls/hr Ondansetron HCl (Zofran) 4 mg IV NOW ONE Stop: 05/07/18 08:26 Last Admin: 05/07/18 08:37 Dose: 4 mg Vital Signs - 8 hr 05/07/18 12:22 Pulse Rate 73 Respiratory Rate 18 Blood Pressure [Right Arm] 113/71 Pulse Oximetry 97 MDM - Back Pain/Injury Lab Data Attestation: I reviewed the patient's lab results. Result diagrams: 05/07/18 08:30 05/07/18 08:30 Lab Results 05/07/18 05/07/18 05/07/18 Range/Units 08:30 08:30 08:35 WBC 22.0 H (4.5-11.0) X10^3/uL RBC 4.19 L (4.5-5.9) X10^6/uL Hgb 12.0 L (13.5-17.5) g/dL Hct 35.7 L (41-53) % MCV 85.1 (80-100) fL MCH 28.7 (26-34) PG MCHC 33.7 (30-36) % RDW 13.4 (11.6-14.8) % Plt Count 388 (150-400) X10^3/uL Neut % (Auto) Not Reportable Lymph % (Auto) Not Reportable [place] % (Auto) Not Reportable Eos % (Auto) Not Reportable Baso % (Auto) Not Reportable Total Counted 100 Seg Neutrophils % 76.0 H (38-70) % Band Neutrophils % 9.0 H (3-7) % Lymphocytes % (Manual) 4.0 L (25-45) % Monocytes % (Manual) 6.0 (2-11) % Eosinophils % (Manual) 4.0 (2-4) % Basophils % (Manual) 1.0 (0-1) % Neutrophils # (Manual) 60468 H (1604-0231) /uL Nucleated RBCs 1 H ( - 0) #/Diff RBC Morphology Normal morphology Sodium 141 (137-145) mmol/L Potassium 4.2 (3.4-5.1) mmol/L Chloride 107 (98-107) mmol/L Carbon Dioxide 21 L (22-32) mmol/L BUN 28 H (9-20) mg/dL Creatinine 1.60 H (0.66-1.25) mg/dL Estimated GFR 42.9 L (>60) mL/min BUN/Creatinine Ratio 17.5 (6-22) Glucose 129 H (80-110) mg/dL Calcium 8.0 L (8.4-10.2) mg/dL Total Bilirubin 0.7 (0.2-1.3) mg/dL AST 34 (17-59) IU/L ALT 46 (21-72) IU/L Alkaline Phosphatase 154 H (38-126) U/L Total Protein 6.4 (6.3-8.2) g/dL Albumin 3.6 (3.5-5.0) g/dL Globulin 2.8 (1.7-4.1) g/dL Albumin/Globulin Ratio 1.3 (1.0-2.8) Procalcitonin 0.25 (<0.5) ng/mL MDM Narrative Medical decision making narrative: Patient's white count is quite elevated, has procalcitonin is normal range. Hemoglobin is 12. His states that his white count has been elevated secondary to his treatments through [facility]. I do not have any of the prior numbers but is he is not having any other infectious symptoms, no fevers they were aware that he has had a leukocytosis on his procalcitonin is in range I suspect this is not infectious at this time. Patient has some improvement pain and was able to ambulate in the department. We discussed the pain options such as oral Dilaudid versus fentanyl patch. Was felt that he may do better with a pain medication that would be continuous and can continue oxycodone in or morphine needed for breakthrough pain patient had a fentanyl patch placed here department. He was given a script of several patches and has follow-up on or Tuesday with his oncologist Dr. leon we discussed that they can do further pain medication refills through Oncology. His also stated that they were going to discuss palliative care with Oncology as well. We discussed the best ways to doses medication to prevent any narcotic overdose as he is taking fairly large doses. Patient does not have any decrease in mental status with 3 doses of Dilaudid so I feel he will likely handle these medications appropriately. Discharge Plan Departure Patient Disposition: Home Clinical Impression: Back pain, Metastatic cancer Discharge Date/Time: 05/07/18 12:34 Interventions: ED Discharge Assessment Last Done: 05/07/18 12:34 Activity Restrictions/Additional Instructions: Call to set up follow-up to review your pain medications and to adjust accordingly. Call tomorrow morning for follow-up appointment. Place fentanyl past and remove every 72 hr. You may continue oral medications at home including oxycodone and morphine for breakthrough pain. These medications can make people very sleepy do not drive, perform hazards activities or make any major decisions while taking them. I also recommend that you do not rapidly increasing her other medications or use more than 1 patch at a time. Continue stool softeners regularly while using these medications. Return to the emergency department for intractable pain, worsening symptoms, fevers, difficulty breathing or shortness of breath. Or other new or concerning symptoms. Prescriptions: New fentanyl 25 mcg/hr patch 72 hour 1 patch Transdermal Q72H Qty: 5 RF: 0 No Action atorvastatin 80 mg tablet 80 mg PO QPM RF: 0 triamcinolone acetonide 0.5 % cream 1 applic Topical DIRECTED RF: 0 tamsulosin 0.4 mg capsule 1 cap PO QPM RF: 0 oxycodone-acetaminophen 5-325 mg tablet 1 tab PO Q4-6H PRN (Reason: pain) Qty: 20 RF: 0 Referrals: Judy Leach PA-C [Primary Care Provider] -
[2018-05-07] MEDS: SODIUM CHLORIDE 0.9% 1,000 ML 1000 ML IV (08:37)
[2018-05-07] MEDS: HYDROMORPHONE 1 MG INJ IV ×2 (08:37→10:30)
[2018-05-07] MEDS: ONDANSETRON 4 MG/2 ML INJ IV (08:37)
[2018-05-07 08:42] LABS: Hematocrit 35.7 % (41-53); Mean Corpuscular HGB Conc 33.7 % (30-36); Mean Corpuscular Hemoglobin 28.7 PG (26-34); Mean Corpuscular Volume 85.1 fL (80-100); Platelet Count 388 X10^3/uL (150-400); Red Blood Cell Count 4.19 X10^6/uL (4.5-5.9); Red Cell Distribution Width 13.4 % (11.6-14.8)
[2018-05-07 08:44] LABS: Add Manual Diff / Slide Review YES
[2018-05-07 08:50] LABS: Alanine Aminotransferase 46 IU/L (21-72); Albumin 3.6 g/dL (3.5-5.0); Albumin Globulin Ratio 1.3 (1.0-2.8); Alkaline Phosphatase 154 U/L (38-126); Aspartate Aminotransferase 34 IU/L (17-59); BUN Creatinine Ratio 17.5 (6-22); Bilirubin Total 0.7 mg/dL (0.2-1.3); Blood Urea Nitrogen 28 mg/dL (9-20); Carbon Dioxide 21 mmol/L (22-32); Chloride 107 mmol/L (98-107); Estimated Glomerular Filt Rate 42.9 mL/min (>60); Globulin 2.8 g/dL (1.7-4.1); Glucose 129 mg/dL (80-110); HEMOLYSIS < 15 (0-50); Potassium 4.2 mmol/L (3.4-5.1); Sodium 141 mmol/L (137-145); Total Protein 6.4 g/dL (6.3-8.2)
[2018-05-07 09:24] LABS: Neutrophils Absolute Manual 18700 /uL (3000-5900); Nucleated Red Blood Cells 1 #/Diff; Total Cells Counted 100
[2018-05-07 09:25] LABS: RBC Morphology Normal Morphology
[2018-05-07 09:58] LABS: Procalcitonin 0.25 ng/mL (<0.5)
[2018-05-07 10:04] VITALS: BP 112/74; PULSE 70; RESP 15; O2SAT 93
--- NOTE | 2018-05-07 10:09 | PC.NURSE ---
pt c/o worsening backpain. unable to manage pain at home. has known terminal spinal ca. per pt unable to sleep, has taken oxycodone, and morphine without relief.
[2018-05-07 11:00] VITALS: BP 112/71; PULSE 72; O2SAT 95
[2018-05-07] MEDS: fentaNYL 25 MCG/PATCH TOP (12:03)
[2018-05-07 12:22] VITALS: BP 113/71; PULSE 73; RESP 18; O2SAT 97
== END 2018-05-07 12:34 | disposition home or self-care (01) ==
PROVIDERS: Emergency Provider Emergency Medicine; Family Provider Family Medicine; PCP Physician Assistant
DX: M54.9 Dorsalgia, unspecified (principal); C79.9 Secondary malignant neoplasm of unspecified site
CPT/HCPCS: 36591; 80053; 84145; 85025; 96361; 96374; 96375; 96376; 99283; 99284; J1170; J2405

== ENCOUNTER 2018-05-11 06:37 | Day surgery (SDC) | payer MEDICARE, SELFPAY ==
[2018-05-11] VITALS (7 sets, daily range): BP systolic 116–129; BP diastolic 71–78; PULSE 80–88; RESP 10–16; TEMP 36.3–36.9; O2SAT 93–96; BMI 23.8
--- NOTE | 2018-05-11 | DI.RAD.S_ITS ---
PROCEDURE: XR CHEST 1V INDICATIONS: CHEST XR FOR PORT TECHNIQUE: One view of the chest was acquired. COMPARISON: [facility], CR, XR CHEST 2V, 03/29/2018, 13:46. FINDINGS: Surgical changes and devices: Sternal wires, including fractured first wire, demonstrating minimal increased diastasis compared to prior exam. Left port a cath is present with distal tip. Lungs and pleura: Bilateral increased pulmonary vascularity. There are increased opacities in the right lung, predominately in the upper lobe. Trace right costophrenic angle blunting. Mediastinum: Mediastinal contours appear normal. Heart size is enlarged. Bones and chest wall: No suspicious bony lesions. Overlying soft tissues appear unremarkable. IMPRESSION: Cardiomegaly with trace right effusion and edema. Focal increased right lobe opacity could represent edema or developing air space disease such as atelectasis or pneumonia. Dictated by: Poonam Tamez M.D. on 05/11/2018 at 10:06 Approved by: Poonam Tamez M.D. on 05/11/2018 at 10:12
[2018-05-11] MEDS: LACTATED RINGERS 1,000 ML 42 ML IV (07:30)
--- NOTE | 2018-05-11 08:15 | SUR.OPER ---
Supine on padded OR bed, rolled towel between shoulder blades, head on pillow, arms secured on padded arm boards at <90 degrees abduction, legs uncrossed, safety belt at thigh, tape over blanket over lower legs.
[2018-05-11] MEDS: CEFAZOLIN 1 GM VIAL IV (08:19)
[2018-05-11] MEDS: HEPARIN 5,000 UNIT, SODIUM CHLORIDE 0.9% 50 ML IV (08:25)
--- NOTE | 2018-05-11 09:05 | SUR.PHASEI ---
stable pacu stay, awaiting dr corrales to report on chest xray taken.
--- NOTE | 2018-05-11 09:13 | SUR.PHASEI ---
so read to opd.
--- NOTE | 2018-05-11 09:32 | SUR.PHASEII ---
brought in, d/c instructions discussed, packet for port given with explanation to pt and spouse.
--- NOTE | 2018-05-11 09:41 | SUR.PHASEII ---
pt ready to go, assisted to dress, pt left when ready and left in stable condition. dressing remained c/d/i.
--- NOTE | 2018-05-11 16:36 | OP_ITS ---
DATE OF SERVICE: 05/11/2018 PREOP DIAGNOSIS: Metastatic renal cell carcinoma. POSTOP DIAGNOSIS: Metastatic renal cell carcinoma. PROCEDURE: Insertion of a Port-a-Cath for chemotherapy infusion. SURGEON: Mando Lynne MD DESCRIPTION OF PROCEDURE: The patient was given a general anesthetic, prepped and draped in sterile fashion with exposure of the upper chest, both sides. He was properly identified during surgical pause. Using Seldinger technique, the left subclavian vein was easily entered, and using fluoroscopy, then I gently could thread a J wire into the superior vena cava without evidence of pneumothorax or arterial injury. A small pocket was made inferior to the venous insertion site. The venous catheter was threaded up from the pocket to the venous insertion site using the introducer supplied by the soaping department supervisor. The catheter was then cut and sized for the patient and connected to the life port and the entire device filled with plain saline. Using a banana peel introducer passed over the J wire, I was able to easily thread the venous tubing into the superior vena cava. I was able to easily aspirate blood into the device and then irrigated the blood out of the device and filled the device with heparinized saline, several thousand units, [id number] units, were administered. Both wounds were irrigated with sterile saline. The Port-a-Cath itself was sutured to the pectoral fascia of the pectoralis major muscle with permanent nylon sutures. This prevents it from rotating. Finally, the subcutaneous was closed with 5-Vicryl. The skin in both wounds closed with subcuticular Monocryl. Steri-Strips, sterile dressings applied. The procedure was very well tolerated. Portable chest x-ray to be taken in the recovery room. Toy Barrera - Mark/eliana doc#: [id number]/job#: [id number] dd: 05/11/2018 08:45:00 dt: 05/11/2018 16:29:00 DICTATING MD/COPIES TO: Mando Lynne MD COPIES MNE: ANTHONY
--- NOTE | 2018-05-12 08:14 | HP_ITS ---
DATE OF SERVICE: 05/11/2018 PREOPERATIVE HISTORY AND PHYSICAL HISTORY OF PRESENT ILLNESS: Mr. Barrera is 72 years old with metastatic renal cell carcinoma first diagnosed in May 2017. He had a nephrectomy. He was discovered to have metastatic disease this past March with compression fractures in L1 and L2, spinal metastases noted on MRI, and he had a right iliac biopsy on April 21, just a few weeks ago, consistent with metastatic renal cell carcinoma. He's started on immunotherapy, and we're, today, going to put in a life port for installation of his cancer chemotherapy. I've explained the procedure to the patient and his . They understand it fully and they agree. PAST MEDICAL HISTORY: He had history of a CABG. He also has this history of a nephrectomy. He has metastatic renal cell cancer. He has been a former smoker. ALLERGIES: NO KNOWN DRUG ALLERGIES. REVIEW OF SYSTEMS: System review is negative for exertional chest pain or unusual shortness of breath. GI is negative. : See HPI. NEUROLOGIC: No strokes or seizures. He had an MRI which is negative for cerebral metastases. PHYSICAL EXAMINATION GENERAL: He is alert and oriented. VITAL SIGNS: Blood pressure 115/70. Heart rate 88. HEENT: Ears, nose, and throat are normal. NECK: No adenopathy. CHEST: Lungs are clear. HEART: Regular rate and rhythm. No murmur. No gallop. No rub. ABDOMEN: Soft. No organomegaly. No tenderness. NEUROLOGIC: He is intact. PSYCHIATRIC: Normal. IMPRESSION: Stage III renal cell carcinoma. He is about to receive a life port, and this is for ongoing chemotherapy for his cancer. Toy Barrera - /indy/eliana doc#: [id number]/job#: [id number] dd: 05/11/2018 07:36:00 dt: 05/11/2018 16:24:00 DICTATING MD/COPIES TO: Mando Lynne MD COPIES MNE: ANTHONY
== END 2018-05-11 09:42 | disposition home or self-care (01) ==
PROVIDERS: Family Provider Family Medicine; PCP Physician Assistant; Visit Provider Surgery
PROC: (CPT 36561; principal; 2018-05-11 07:45)
DX: C64.9 Malignant neoplasm of unspecified kidney, except renal pelvis (principal); Z45.2 Encounter for adjustment and management of vascular access device; Z95.1 Presence of aortocoronary bypass graft; Z90.5 Acquired absence of kidney; Z87.891 Personal history of nicotine dependence
CPT/HCPCS: 36561; 71045; 76000; C1788; J0690; J1644; J2405; J2704; J3010

== ENCOUNTER 2018-05-23 10:00 | Oncology outpatient (ONC) | payer MEDICARE, SELFPAY ==
--- NOTE | 2018-05-08 12:56 | ONC.CONS ---
History of Present Illness - Data of Consult Patient: new to practice Consult date: 05/08/18 Requesting Physician: Self referral Primary Care Provider: Judy Leach PA-C - Consult Narrative Reason for consult: Metastatic renal cell carcinoma Narrative: Toy Barrera is a 72 year old male with prolonged history of kidney stone over the years, and he has seen blood in the urine in the past. On June 06, 2017, CT scan was performed for work-up of kidney stone, and it showed mild to moderate hydronephrosis with an obstructing 5 mm stone within mid left ureter and incidentally a large multilobulated mass of the superior pole of right kidney. He did not have any symptoms, except left side back pain. On June 23, 2017, he underwent laparoscopic right nephrectomy and partial ureterectomy by Dr. David Reynolds. 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 He was on surveillance after nephrectomy and CT chest, abdomen pelvis on Oct 03 017 were unremarkable. In January of 2018, patient developed right abdominal pain and rib pain which progressed to low back pain at L4-L5 by March 2018. On March 28, 2018 compression fractures at L1 and L2, multiple spinal metastasis were noted on MRI scan. April 21, 2018 right iliac biopsy was done that was consistent with metastatic renal cell carcinoma at [facility]. Brain MRI on April 21, 2018 showed no evidence of intracranial metastasis, and enlargement of the lateral and 3rd ventricles without enlargement of sulci suggestive of possible altered CSF dynamics. Patient reported no weight loss. The pain is located at the lower back, constant. If not on pain, 10/10 in severity; when on pain meds, good control, 3-4/10 in severity. He is taking Oxycodone 5 mg x 5# per day. Morphine 15 mg, q12h, and Fentanyl patch 25 mcg q72hrs. He was then referred to [facility]. Fredis Estevez saw the patient. Immunotherapy was recommended. He was started on Ipilimumab and Nivolumab on Apr 26, 2018. He called our clinic and would like to continue the treatment and possibly pursue palliative care at our clinic due to travel difficulties to [place]. For the past one week, he complained of nausea, vomiting, fatigue, change of taste, a little fever (100.4), he denies diarrhea. His pain is about the same. He has mild cold sensitivity. He is able walk around. Patient reports pain?: Yes - Pain Details Pain location: Lower back Pain Intensity: 10 (when not on pain medications) Pain Scale Used: Numeric (1 - 10) Pain Frequency: Constant Pain Description: Acute, With Movement Home Medications and Allergies Home Medications Medication Instructions Recorded Confirmed Type atorvastatin 80 mg PO QPM 03/29/18 03/29/18 History tamsulosin 1 cap PO QPM 03/29/18 03/29/18 History triamcinolone acetonide 1 applic TOPICAL DIRECTED 03/29/18 03/29/18 History fentanyl 1 patch TRANSDERMAL Q72H #5 each 05/07/18 Rx bisacodyl [Dulcolax (bisacodyl)] 5 mg PO PRN PRN 05/08/18 05/08/18 History morphine [MS Contin] 30 mg PO Q12H #60 tab 05/08/18 Rx oxycodone [Roxicodone] 10 mg PO Q4-6H PRN #60 tab 05/08/18 Rx Allergies Allergy/AdvReac Type Severity Reaction Status Date / Time No Known Drug Allergies Allergy Verified 05/07/18 08:09 Medical History - Medical, Surgical, Family History Medical History: Medical History (Last Reviewed 05/07/18 @ 08:38 by Alpa Mayfield DO) Renal cell carcinoma Surgical History: Surgical History (Last Reviewed 05/07/18 @ 08:38 by Alpa Mayfield DO) History of nephrectomy Hx of CABG - Social History Smoking Status: Former smoker Alcohol Intake: never Review of Systems All systems PM: reviewed and no additional remarkable complaints except as stated Exam Vital signs: Last Vital Signs Temp 98.6 F 05/08/18 13:03 Pulse 88 05/08/18 13:03 Resp 18 05/08/18 13:03 BP 113/68 05/08/18 13:03 Pulse Ox 97 05/08/18 13:03 ECOG 1 Narrative: Constitutional: Well developed, thin, not in any acute respiratory distress, and cooperative. HEENT: Normocephalic atraumatic. Extraocular muscle movement intact. Pupils are round, equal and reactive to light and accommodations. Anicteric sclera. No hearing difficulty; Oral mucus membrane moist and without ulcers. Neck: Supple, symmetrical, and tracheal midline; No palpable thyromegaly and no palpable lymph nodes. Respiratory: No use of accessory muscles. Clear to auscultation, and no wheezes or rales or rubs. Cardiovascular: Regular rate and rhythm, S1 and S2 normal, no murmurs gallops or rubs. No JVD. No pitting edema of lower extremities. Abdomen: Soft, nontender, non-distended, bowel sounds normal, no palpable organomegaly, no hernia, no palpable masses. Lower extremities: No palpable pedal edema. Lymphatic: no palpable lymph nodes in the neck, axillae, or groins. Musculoskeletal: normal gait and station, no clubbing, no cyanosis, no pitting edema. Skin: no rashes, no ulcers, no petechiae Neurological: Awake and alert and oriented x3. CN II-XII grossly intact. No focal motor or sensory deficit. Psychiatric: Good judgment, good insight, normal affect, normal thought process, cooperative, no depression, no anxiety. Results - Imaging Chest x-ray: report reviewed Abdominal x-ray: report reviewed CT scan - abdomen: report reviewed CT scan - chest: report reviewed CT scan - pelvis: report reviewed Assessment and Plan (1) Renal cell cancer Discussed with the patient that for metastatic renal cell carcinoma, the state of the art treatment at present is immunotherapy. I will continue the treatment that has been initiated at [facility]. In addition I talked with the patient that he most likely will need a fpc treatment. Therefore I would recommend a port placement. Patient and patient's family including his does the all verbalized understanding. Today in addition, I also explained to them about the overall treatment plan for metastatic renal cell carcinoma. I talked with the that prior to the emergence of immunotherapy, tyrosine kinase inhibitor Sutent which has proven efficacy and has been shown to prolong pupils life. Unfortunately the Sutent carries a significant side effects profile that makes a less desirable option especially when compared with immunotherapy Plan: 1. Port placement 2. Continue cycle 2 Ipilimumab/Nivolumab 05/17/2018 3. 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 The compromised kidney function might be a reflection of this fact. However we will need to continue to monitor closely especially given the risk of possible immune related nephritis. Plan: 1. Monitor CBC, CMP when he comes back in one week. (3) Bone metastasis Patient has multiple levels of metastasis in the vertebra according the MRI reports. And the [facility] has recommended bone targeting agents. Talked with the patient that we will consider continue with continued monitoring of the kidney function. Plan: Will continue bone targetting therapy with either zometa or Xgeva. Will discuss after port placement. . (4) Pain Malignancy and metastasis related back and lower back pain. Plan: 1. Continue Morphine ER, and increased to 30 mg q12h 2. Continue Oxycodone, but increased to 10 mg q4-6 hr, prn 3. Discontinue Fentanyl patch (25 mcg). (5) Cachexia Patient has significant weight loss and appears thin and mildly cachectic. I talked with the patient that there is no medications or supplemental treatments that can increase the appetite overnight. Patient has to try to improve PO intake as much as he can. Plan: I have encouraged patient try to increase the p.o. intake for example Ensure or protein powder. (6) Nausea & vomiting Related to underlying pain, malignancy as well as possibly the immunotherapy. Plan: Zofran prn
[2018-05-08 13:03] VITALS: BP 113/68; PULSE 88; RESP 18; TEMP 37; O2SAT 97
--- NOTE | 2018-05-08 13:09 | P.CONONC_ITS ---
History of Present Illness - Data of Consult Patient: new to practice Consult date: 05/08/18 Requesting Physician: Self referral Primary Care Provider: Judy Leach PA-C - Consult Narrative Reason for consult: Metastatic renal cell carcinoma Narrative: Toy Barrera is a 72 year old male with prolonged history of kidney stone over the years, and he has seen blood in the urine in the past. On June 06, 2017 , CT scan was performed for work-up of kidney stone, and it showed mild to moderate hydronephrosis with an obstructing 5 mm stone within mid left ureter and incidentally a large multilobulated mass of the superior pole of right kidney. He did not have any symptoms, except left side back pain. On June 23, 2017, he underwent laparoscopic right nephrectomy and partial ureterectomy by Dr. David Reynolds. 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 He was on surveillance after nephrectomy and CT chest, abdomen pelvis on Oct 03 017 were unremarkable. In January of 2018, patient developed right abdominal pain and rib pain which progressed to low back pain at L4-L5 by March 2018. On March 28, 2018 compression fractures at L1 and L2, multiple spinal metastasis were noted on MRI scan. April 21, 2018 right iliac biopsy was done that was consistent with metastatic renal cell carcinoma at . Brain MRI on April 21, 2018 showed no evidence of intracranial metastasis, and enlargement of the lateral and 3rd ventricles without enlargement of sulci suggestive of possible altered CSF dynamics. Patient reported no weight loss. The pain is located at the lower back, constant. If not on pain, 10/10 in severity; when on pain meds, good control, 3- 4/10 in severity. He is taking Oxycodone 5 mg x 5# per day. Morphine 15 mg, q12h , and Fentanyl patch 25 mcg q72hrs. He was then referred to [facility]. Fredis Estevez saw the patient. Immunotherapy was recommended. He was started on Ipilimumab and Nivolumab on Apr 26, 2018. He called our clinic and would like to continue the treatment and possibly pursue palliative care at our clinic due to travel difficulties to [place]. For the past one week, he complained of nausea, vomiting, fatigue, change of taste, a little fever (100.4), he denies diarrhea. His pain is about the same. He has mild cold sensitivity. He is able walk around. Patient reports pain?: Yes - Pain Details Pain location: Lower back Pain Intensity: 10 (when not on pain medications) Pain Scale Used: Numeric (1 - 10) Pain Frequency: Constant Pain Description: Acute, With Movement Home Medications and Allergies Home Medications Medication Instructions Recorded Confirmed Type atorvastatin 80 mg PO QPM 03/29/18 03/29/18 History tamsulosin 1 cap PO QPM 03/29/18 03/29/18 History triamcinolone acetonide 1 applic TOPICAL DIRECTED 03/29/18 03/29/18 History fentanyl 1 patch TRANSDERMAL Q72H #5 each 05/07/18 Rx bisacodyl [Dulcolax (bisacodyl)] 5 mg PO PRN PRN 05/08/18 05/08/18 History morphine [MS Contin] 30 mg PO Q12H #60 tab 05/08/18 Rx oxycodone [Roxicodone] 10 mg PO Q4-6H PRN #60 tab 05/08/18 Rx Allergies Allergy/AdvReac Type Severity Reaction Status Date / Time No Known Drug Allergies Allergy Verified 05/07/18 08:09 Medical History - Medical, Surgical, Family History Medical History: Medical History (Last Reviewed 05/07/18 @ 08:38 by Alpa Mayfield DO) Renal cell carcinoma Surgical History: Surgical History (Last Reviewed 05/07/18 @ 08:38 by Alpa Mayfield DO) History of nephrectomy Hx of CABG - Social History Smoking Status: Former smoker Alcohol Intake: never Review of Systems All systems PM: reviewed and no additional remarkable complaints except as stated Exam Vital signs: Last Vital Signs Temp 98.6 F 05/08/18 13:03 Pulse 88 05/08/18 13:03 Resp 18 05/08/18 13:03 BP 113/68 05/08/18 13:03 Pulse Ox 97 05/08/18 13:03 ECOG 1 Narrative: Constitutional: Well developed, thin, not in any acute respiratory distress, and cooperative. HEENT: Normocephalic atraumatic. Extraocular muscle movement intact. Pupils are round, equal and reactive to light and accommodations. Anicteric sclera. No hearing difficulty; Oral mucus membrane moist and without ulcers. Neck: Supple, symmetrical, and tracheal midline; No palpable thyromegaly and no palpable lymph nodes. Respiratory: No use of accessory muscles. Clear to auscultation, and no wheezes or rales or rubs. Cardiovascular: Regular rate and rhythm, S1 and S2 normal, no murmurs gallops or rubs. No JVD. No pitting edema of lower extremities. Abdomen: Soft, nontender, non-distended, bowel sounds normal, no palpable organomegaly, no hernia, no palpable masses. Lower extremities: No palpable pedal edema. Lymphatic: no palpable lymph nodes in the neck, axillae, or groins. Musculoskeletal: normal gait and station, no clubbing, no cyanosis, no pitting edema. Skin: no rashes, no ulcers, no petechiae Neurological: Awake and alert and oriented x3. CN II-XII grossly intact. No focal motor or sensory deficit. Psychiatric: Good judgment, good insight, normal affect, normal thought process , cooperative, no depression, no anxiety. Results - Imaging Chest x-ray: report reviewed Abdominal x-ray: report reviewed CT scan - abdomen: report reviewed CT scan - chest: report reviewed CT scan - pelvis: report reviewed Assessment and Plan (1) Renal cell cancer Discussed with the patient that for metastatic renal cell carcinoma, the state of the art treatment at present is immunotherapy. I will continue the treatment that has been initiated at [facility]. In addition I talked with the patient that he most likely will need a intermodal customer service treatment. Therefore I would recommend a port placement. Patient and patient's family including his does the all verbalized understanding. Today in addition, I also explained to them about the overall treatment plan for metastatic renal cell carcinoma. I talked with the that prior to the emergence of immunotherapy, tyrosine kinase inhibitor Sutent which has proven efficacy and has been shown to prolong pupils life. Unfortunately the Sutent carries a significant side effects profile that makes a less desirable option especially when compared with immunotherapy Plan: 1. Port placement 2. Continue cycle 2 Ipilimumab/Nivolumab 05/17/2018 3. 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 The compromised kidney function might be a reflection of this fact. However we will need to continue to monitor closely especially given the risk of possible immune related nephritis. Plan: 1. Monitor CBC, CMP when he comes back in one week. (3) Bone metastasis Patient has multiple levels of metastasis in the vertebra according the MRI reports. And the [facility] has recommended bone targeting agents. Talked with the patient that we will consider continue with continued monitoring of the kidney function. Plan: Will continue bone targetting therapy with either zometa or Xgeva. Will discuss after port placement. . (4) Pain Malignancy and metastasis related back and lower back pain. Plan: 1. Continue Morphine ER, and increased to 30 mg q12h 2. Continue Oxycodone, but increased to 10 mg q4-6 hr, prn 3. Discontinue Fentanyl patch (25 mcg). (5) Cachexia Patient has significant weight loss and appears thin and mildly cachectic. I talked with the patient that there is no medications or supplemental treatments that can increase the appetite overnight. Patient has to try to improve PO intake as much as he can. Plan: I have encouraged patient try to increase the p.o. intake for example Ensure or protein powder. (6) Nausea & vomiting Related to underlying pain, malignancy as well as possibly the immunotherapy. Plan: Zofran prn
--- NOTE | 2018-05-09 09:10 | ONC.SCHED ---
IPILUMUMAB [id number] / NIVOLUMAB [id number] [facility] [place]
[2018-05-15 14:03] VITALS: BP 104/74; PULSE 84; RESP 18; TEMP 36.8; O2SAT 98
[2018-05-15 14:07] LABS: Hematocrit 33.2 % (41-53); Hemoglobin 10.9 g/dL (13.5-17.5); Mean Corpuscular Hemoglobin 28.3 PG (26-34); Mean Corpuscular Volume 85.9 fL (80-100); Platelet Count 321 X10^3/uL (150-400); Red Blood Cell Count 3.87 X10^6/uL (4.5-5.9); Red Cell Distribution Width 13.4 % (11.6-14.8)
[2018-05-15 14:08] LABS: Add Manual Diff / Slide Review YES
[2018-05-15 14:18] LABS: Alanine Aminotransferase 32 IU/L (21-72); Albumin 3.3 g/dL (3.5-5.0); Albumin Globulin Ratio 1.1 (1.0-2.8); Alkaline Phosphatase 145 U/L (38-126); Aspartate Aminotransferase 42 IU/L (17-59); BUN Creatinine Ratio 21.8 (6-22); Bilirubin Total 0.6 mg/dL (0.2-1.3); Blood Urea Nitrogen 24 mg/dL (9-20); Calcium 8.7 mg/dL (8.4-10.2); Carbon Dioxide 23 mmol/L (22-32); Chloride 103 mmol/L (98-107); Estimated Glomerular Filt Rate > 60.0 mL/min (>60); Glucose 126 mg/dL (80-110); HEMOLYSIS 33 (0-50); Potassium 4.5 mmol/L (3.4-5.1); Sodium 139 mmol/L (137-145); Total Protein 6.3 g/dL (6.3-8.2)
--- NOTE | 2018-05-15 14:20 | P.PNONC_ITS ---
PN -Subjective Interval history: On 05/12/2018, Dr. Mando Lynne did insertion of a Port-a-Cath. Since his previous visit, the main problem has been the constipation. Patient said that he is using Ex-Lax at actually it works very well. Patient is aware that the constipation most likely is due to the use of the narcotics. He denies any fever, but does report some chills. He denies any chest pain. Patient reports nausea especially after using the narcotics. Patient continues to have lower back pain especially on the right side. No other new events. Patient presents here today for evaluation prior to the resumption the immunotherapy with ipilimumab and nivolumab. Oncolgical History Mr. Toy Barrera is a 72 year old male with prolonged history of kidney stone. Over the years, he has seen blood in the urine. On Jun 06, 2017, CT scan for work-up of kidney stone showed mild to moderate hydronephrosis with an obstructing 5 mm stone within mid left ureter and incidentally a large multi- lobulated mass of the superior pole of right kidney. He did not have any symptoms, except left side back pain. On Jun 23, 2017, he underwent laparoscopic right nephrectomy and partial ureterectomy by Dr. David Reynolds. 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 He was on surveillance after nephrectomy and CT chest, abdomen pelvis on Oct 03, 017 were unremarkable. In January 2018, patient developed right abdominal pain and rib pain which progressed to low back pain at L4-L5 by Mar 2018. On Mar 28, 2018 compression fractures at L1 and L2, multiple spinal metastasis were noted on MRI scan. Apr 21, 2018 right iliac biopsy was done that was consistent with metastatic renal cell carcinoma at [facility]. Brain MRI on Apr 21, 2018 showed no evidence of intracranial metastasis, and enlargement of the lateral and 3rd ventricles without enlargement of sulci suggestive of possible altered CSF dynamics. He was then referred to [facility]. Fredis Estevez saw the patient. Immunotherapy was recommended. He was started on Ipilimumab and Nivolumab on Apr 26, 2018. He called our clinic and would like to continue the treatment and possibly pursue palliative care at our clinic due to travel difficulties to [place]. - Patient Self-Reported Symptoms SR Constitution: Weight loss/gain, Fatigue/Malaise SR respiratory issues: Shortness of breath, Mucous SR Cardiovascular issues: Shortness of breath with activity or lying flat, Dizzy /lightheaded SR Gastrointestinal issues: Poor or no appetite, Change in bowel pattern, Nausea , Vomiting, Constipation SR Genitourinary issues: Frequent urination SR Musculoskeletal issues: Muscle weakness, Back or neck pain, Difficulty walking SR Neuro issues: Headache, Lightheaded/dizzy, Difficulty balancing SR Endocrine issues: Excessive thirst - Additional ROS All systems PM: reviewed and no additional remarkable complaints except as stated Home Medications and Allergies Home Medications Medication Instructions Recorded Confirmed Type triamcinolone acetonide 1 applic TOPICAL DIRECTED 03/29/18 05/11/18 History bisacodyl [Dulcolax (bisacodyl)] 5 mg PO PRN PRN 05/08/18 05/11/18 History morphine [MS Contin] 30 mg PO Q12H #60 tab 05/08/18 05/11/18 Rx oxycodone [Roxicodone] 10 mg PO Q4-6H PRN #60 tab 05/08/18 05/11/18 Rx metoclopramide HCl [Reglan] 10 mg PO DAILY 05/11/18 05/11/18 History ondansetron 8 mg PO BID-TID PRN 05/11/18 05/11/18 History lorazepam [Ativan] 0.5 mg PO BID-TID PRN #60 tab 05/15/18 Rx Allergies Allergy/AdvReac Type Severity Reaction Status Date / Time No Known Drug Allergies Allergy Verified 05/07/18 08:09 Exam Vital signs: 3 Temp 98.2 F 05/15/18 14:03 Pulse 84 05/15/18 14:03 Resp 18 05/15/18 14:03 BP 104/74 05/15/18 14:03 Pulse Ox 98 05/15/18 14:03 ECOG 1 Narrative: Constitutional: Well developed, thin, not in any acute respiratory distress, and cooperative. HEENT: Normocephalic atraumatic. Extraocular muscle movement intact. Pupils are round, equal and reactive to light and accommodations. Anicteric sclera. No hearing difficulty; Oral mucus membrane moist and without ulcers. Neck: Supple, symmetrical, and tracheal midline; No palpable thyromegaly and no palpable lymph nodes. Respiratory: No use of accessory muscles. Clear to auscultation, and no wheezes or rales or rubs. Cardiovascular: Regular rate and rhythm, S1 and S2 normal, no murmurs gallops or rubs. No JVD. No pitting edema of lower extremities. Abdomen: Soft, nontender, non-distended, bowel sounds normal, no palpable organomegaly, no hernia, no palpable masses. Lower extremities: No palpable pedal edema. Lymphatic: no palpable lymph nodes in the neck, axillae, or groins. Musculoskeletal: normal gait and station, no clubbing, no cyanosis, no pitting edema. Skin: no rashes, no ulcers, no petechiae Neurological: Awake and alert and oriented x3. CN II-XII grossly intact. No focal motor or sensory deficit. Psychiatric: Good judgment, good insight, normal affect, normal thought process , cooperative, no depression, no anxiety. Results - Labs 3 WBC 23.0 X10^3/uL (4.5-11.0) H 05/15/18 13:59 RBC 3.87 X10^6/uL (4.5-5.9) L 05/15/18 13:59 Hgb 10.9 g/dL (13.5-17.5) L 05/15/18 13:59 Hct 33.2 % (41-53) L 05/15/18 13:59 MCV 85.9 fL (80-100) 05/15/18 13:59 MCH 28.3 PG (26-34) 05/15/18 13:59 MCHC 33.0 % (30-36) 05/15/18 13:59 RDW 13.4 % (11.6-14.8) 05/15/18 13:59 Plt Count 321 X10^3/uL (150-400) 05/15/18 13:59 Neut % (Auto) Not Reportable 05/15/18 13:59 Lymph % (Auto) Not Reportable 05/15/18 13:59 [place] % (Auto) Not Reportable 05/15/18 13:59 Eos % (Auto) Not Reportable 05/15/18 13:59 Baso % (Auto) Not Reportable 05/15/18 13:59 Assessment and Plan (1) Renal cell cancer Metastatic recurrent renal cell carcinoma status post 1 cycle of immunotherapy with ipilimumab and nivolumab. Here to discuss resuming the treatment. Clinically patient has been doing well except the pain problems which is associated with the recurrence of the metastatic kidney cancer. I talked with the patient and I will resume the treatment as scheduled. Plan: 1. Ok to proceed to cycle 2 Ipilimumab/Nivolumab 05/17/2018 2. 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 The compromised kidney function might be a reflection of this fact. Today, his serum creatinine level has improved to 1.1, at the calculated EGF are is more than 60. I will repeat once more and will then consider Zometa. Plan: 1. Monitor CBC, CMP when he comes back in one week. (3) Bone metastasis Patient has multiple levels of metastasis in the vertebra according the MRI reports. And the [facility] has recommended bone targeting agents. I talked with the patient that we will consider continue with continued monitoring of the kidney function. Plan: Repeat CMP in one week and if GFR stable, will resume Zometa. (4) Pain Malignancy and metastasis related back and lower back pain. Plan: 1. Continue Morphine ER 30 mg q12h 2. Continue Oxycodone, 0 mg q4-6 hr, prn (5) Cachexia Patient has significant weight loss and appears thin and mildly cachectic. I talked with the patient that there is no medications or supplemental treatments that can increase the appetite overnight. Patient has to try to improve PO intake as much as he can. Plan: I have encouraged patient try to increase the p.o. intake for example Ensure or protein powder. (6) Nausea & vomiting Related to underlying pain, malignancy as well as possibly the immunotherapy. Plan: Zofran prn Ordered Ativan 1 mg q4-6 hr prn. (7) Leukocytosis The etiology of the leukocytosis is unclear. Patient does not have high fever. Patient has some chills. But clinically he does not present with sepsis. The other possibilities including pain related, or paraneoplastic phenomenon. I talked with the patient that for the time being, I will monitor closely. Plan: 1. PB smear review by pathology 2. U/A 3. Repeat CBC in one week as mentioned above.
[2018-05-15 14:33] LABS: Neutrophils Absolute Manual 19320 /uL (3000-5900); Total Cells Counted 100
[2018-05-15 14:34] LABS: Platelet Morphology Comment NOTE; RBC Morphology Normal Morphology
[2018-05-16 11:18] LABS: RBC Urine None Seen (0-5/HPF)
[2018-05-16 11:24] LABS: Appearance Urine UA CLOUDY; Bilirubin Urine UA NEGATIVE (NEGATIVE); Color Urine UA YELLOW; Glucose Urine UA NEGATIVE (Normal); Ketones Urine UA NEGATIVE (NEGATIVE); Leukocyte Esterase Urine UA TRACE (NEGATIVE); Nitrite Urine UA NEGATIVE (Negative); Occult Blood Urine UA NEGATIVE (Negative); Protein Urine UA TRACE (Negative); Urobilinogen Urine UA 0.2 E.U./dL (0.2)
[2018-05-16 11:33] LABS: WBC Urine 1-5/HPF (0-5/HPF)
[2018-05-16 11:34] LABS: Amorphous Sediment Urine 4+; Bacteria Urine Many (>30); Culture Indicated Urine Specimen Cultured
[2018-05-17 11:51] VITALS: BP 100/68; PULSE 77; RESP 16; TEMP 36.6; O2SAT 95
[2018-05-17] MEDS: NIVOLUMAB 240 MG in SODIUM CHLORIDE 0.9% (CHEMO) 100 ML 248 ML IV (12:49)
[2018-05-17] MEDS: SODIUM CHLORIDE 0.9% 100 ML 21 ML IV (12:49)
[2018-05-17] MEDS: MORPHINE 10 MG/ML INJ 4 MG IV (13:07)
--- NOTE | 2018-05-17 13:21 | ONC.NAV ---
Description: Coping Support, DME, Care Coordination Activity: Met with pt's , Lulu, to discuss how they are doing in processing pt's recent diagnosis, caregiving and resource needs. states that it's been very hard, that pt has severe pain, which is not currently managed to full benefit/comfort. She became tearful in sharing her own processing of his short life expectancy and palliative focused-care. Both pt and feel well supported by their 2-adult sons and daughter, all of whom will be visiting pt over this coming weekend. She shared that one of her son's is an MD, and has been very instrumental in helping them to direct and coordinate their care needs. Discussed end of life resources, as well as pt's declining functional status. SENIOR ELECTRICAL DESIGNER helped to understand what to look for in terms of continued decline, and at what point they would be best served by hospice care. Pt is having extreme difficulty and discomfort sleeping in his own bed. She states that he can't lay flat due to breathing issues, and that he's in so much pain from the spinal and hip metastasis, that they would like assistance in obtaining a hospital bed. SENIOR ELECTRICAL DESIGNER agreed to assist in coordinating with Dr. Preston to submit this order and required documentation to [facility] [place]. SENIOR ELECTRICAL DESIGNER offered coping and emotional support for pt's , as well as validation of her excellent care of pt and his very rapidly changing care needs. *Pt received a Chemo Quilt today. Plan: Call again tomorrow to update her on the hospital bed status.
[2018-05-17] MEDS: MEPERIDINE 25 MG/ML SYRINGE IV (13:56)
[2018-05-17] MEDS: methylPREDNISolone 125 MG/2 ML VIAL 60 MG IV ×2 (14:10→14:45)
[2018-05-17 14:18] VITALS: PULSE 164; RESP 28; O2SAT 100
--- NOTE | 2018-05-17 15:52 | PC.NURSE ---
Addendum entered by Anita Lira R.N. 05/18/18 09:00: Spoke with Dr Preston this morning regarding pt symptoms at conclusion of Opdivo, and interventions that were carried out. Plan to do next treatments on days Dr Preston is here and also giving premeds prior to administration of Opdivo. Original Note: Spoke with Atiya varela for Dr Preston at [facility], notified her of pt of Dr Preston's with reaction to medication. Dr Dillon at bedside and managing. Just wanted to update Dr Preston on pt status. Received note back from Dr Preston that he will talk to us tomorrow about reaction when he is here in cancer center.
[2018-05-17] MEDS: IPILIMUMAB IV (16:13)
[2018-05-17] MEDS: SODIUM CHLORIDE 0.9% IV (16:13)
--- NOTE | 2018-05-17 16:14 | PC.NURSE ---
Pt was given morphine @ 1245 for back pain r/t mets to his spine. I started his Opdivo medication, gave report to both Nikki and Bree and went to lunch only to return 30 minutes later to find him being managed by Nikki RN, Isabelle, Director and Dr Dillon. Pt was in full rigors and slightly cyanotic around his mouth and his hands. He was placed on 3L of 02. Dr Dillon requested 25mg of demerol, and 60mg of solumedrol x2, both of which were given IV. RT was notified that we were unable to obtain a Sat since he was cyanotic and he also developed a rattle so a stat nebulizer was requested. After all of the following interventions were performed, pt was stable with BP recorded at 137/77, HR elevated in the 150's which was due to the large dose of steroids administered back to back. Pt was monitored over an 1 hour. Pt then requested needing to use the rest room and with the narcotics on board we tried the urinal which was unsuccessful. He was carefully ambulated to the restroom using a walker but that attempt was also unsuccessful. Pt was working hard to ambulate and was becoming very diaphoretic so he was returned to the isolation room and an order for an in and out catheter was placed. Pt was reluctant at first but I explained to him that with him already having issues with urination and the morphine which can also cause retention that this would be the best intervention for relief. He agreed and after inserting the catheter per protocol, pt voided 100cc of straw colored urine. This also seemed to clear is mind and he became more relaxed and resting comfortably. Pt was started on his last infusion (yervoy). Medication was started at increments of 25 for 15 minutes then set at the normal rate to completion. There were no further reaction incidences to report.
[2018-05-17] MEDS: ALBUTEROL 2.5 MG/3 ML NEB (ADULT) INH (17:03)
--- NOTE | 2018-05-18 15:50 | PC.NURSE ---
Called pt and spoke with his to see if she wanted to bring pt in 05/19 for F/U after his rxn to [facility]. She reported that he was like a new man. Walking and talking and eating. She realized it was probably steroid induced and was hoping he could take a low dose to help with inflammation. She was also wondering about long lasting oxycodone as opposed to fast acting that he is taking. I spoke with Dr Preston, and while he was reluctant he did issue a script for Prednisone 5mg 1-2 tabs only daily. His reluctancy was due to the type of medication he is on and the fact the steroids also lower the immune system. He would not issue an Rx for the long acting oxy but instead increased his dose from 10mg to 15mg q4-6h. 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
--- NOTE | 2018-05-22 13:51 | P.PNONC_ITS ---
PN -Subjective Interval history: On 05/17/2018, we resumed treatment with Ipilumumab and Nivolumab. He had a signifcant allergic reaction to use of Nivolumab with shortness of breath, closing-in of throat requiring high dose steroids. He is complaining significant nausea and vomiting. He is taking Zofran prn but not much helpful. He is also endorsing significant constipation. His last BM was 9 days ago. He denies abdominal pain, denies distension and admits to passing gas with use of OTC Ex-Lax. He is also using colace. He has poor appetite, and only eats grapes , apple sauce, Last night, he was able to eat some pizza. He denies fever or chills. Oncolgical History Mr. Toy Barrera is a 72 year old male with prolonged history of kidney stone. Over the years, he has seen blood in the urine. On Jun 06, 2017, CT scan for work-up of kidney stone showed mild to moderate hydronephrosis with an obstructing 5 mm stone within mid left ureter and incidentally a large multi- lobulated mass of the superior pole of right kidney. He did not have any symptoms, except left side back pain. On Jun 23, 2017, he underwent laparoscopic right nephrectomy and partial ureterectomy by Dr. David Reynolds. 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 He was on surveillance after nephrectomy and CT chest, abdomen pelvis on Oct 03, 017 were unremarkable. In January 2018, patient developed right abdominal pain and rib pain which progressed to low back pain at L4-L5 by Mar 2018. On Mar 28, 2018 compression fractures at L1 and L2, multiple spinal metastasis were noted on MRI scan. Apr 21, 2018 right iliac biopsy was done that was consistent with metastatic renal cell carcinoma at [facility]. Brain MRI on Apr 21, 2018 showed no evidence of intracranial metastasis, and enlargement of the lateral and 3rd ventricles without enlargement of sulci suggestive of possible altered CSF dynamics. He was then referred to [facility]. Fredis Estevez saw the patient. Immunotherapy was recommended. He was started on Ipilimumab and Nivolumab on Apr 26, 2018. He called our clinic and would like to continue the treatment and possibly pursue palliative care at our clinic due to travel difficulties to [place]. On 05/12/2018, Dr. Mando Lynne did insertion of a Port-a-Cath. - Patient Self-Reported Symptoms SR Constitution: Weight loss/gain, Fatigue/Malaise SR respiratory issues: Shortness of breath, Mucous SR Cardiovascular issues: Shortness of breath with activity or lying flat, Dizzy /lightheaded SR Gastrointestinal issues: Poor or no appetite, Change in bowel pattern, Nausea , Vomiting, Constipation SR Genitourinary issues: Frequent urination SR Musculoskeletal issues: Muscle weakness, Back or neck pain, Difficulty walking SR Neuro issues: Headache, Lightheaded/dizzy, Difficulty balancing SR Endocrine issues: Excessive thirst - Additional ROS All systems PM: reviewed and no additional remarkable complaints except as stated Home Medications and Allergies Home Medications Medication Instructions Recorded Confirmed Type triamcinolone acetonide 1 applic TOPICAL DIRECTED 03/29/18 05/11/18 History bisacodyl [Dulcolax (bisacodyl)] 5 mg PO PRN PRN 05/08/18 05/11/18 History morphine [MS Contin] 30 mg PO Q12H #60 tab 05/08/18 05/11/18 Rx oxycodone [Roxicodone] 10 mg PO Q4-6H PRN #60 tab 05/08/18 05/11/18 Rx lactulose 20 g PO DAILY PRN 05/22/18 05/22/18 History lorazepam 0.5 mg SUBLINGUAL Q4-6H PRN #60 tab 05/22/18 Rx magnesium hydroxide [Milk of 15 ml PO DAILY PRN 05/22/18 05/22/18 History Magnesia] olanzapine 10 mg PO DAILY PRN #30 tab 05/22/18 Rx Allergies Allergy/AdvReac Type Severity Reaction Status Date / Time No Known Drug Allergies Allergy Verified 05/07/18 08:09 Exam Vital signs: Last Vital Signs Temp 98.2 F 05/22/18 14:30 Pulse 74 05/22/18 14:30 Resp 18 05/22/18 14:30 BP 134/80 05/22/18 14:30 Pulse Ox 94 05/22/18 14:30 ECOG 2 - Constitutional positive no acute distress, positive mild distress, positive thin, positive cachectic, positive chronically ill appearing, positive cooperative - Routine HEENT Exam Head: Present: normocephalic, atraumatic Eye: Present: EOMI, PERRL, normal accommodation. Absent: conjunctival icterus ENT: Present: mucous membranes moist - Routine Neck Exam Present: supple, full ROM. Absent: JVD, lymphadenopathy, thyromegaly - Routine Respiratory Exam Present: Clear to auscultation bilaterally. Absent: wheezes - Routine Cardiovascular Exam Present: RRR, S1, S2. Absent: murmur, gallop, rubs - Routine Abdominal Exam Present: soft, normoactive bowel sounds. Absent: tenderness, distended, organomegaly - Routine Extremities Exam Absent: edema - Routine Neurological Exam Present: alert, oriented X3, CN II-XII intact. Absent: sensory deficit, motor deficit, normal reflexes - Routine Psychiatric Exam Present: normal affect, normal thought process, cooperative, good insight, good judgment Results - Labs Laboratory Last Values WBC 30.8 X10^3/uL (4.5-11.0) H* 05/22/18 14:00 RBC 3.66 X10^6/uL (4.5-5.9) L 05/22/18 14:00 Hgb 10.5 g/dL (13.5-17.5) L 05/22/18 14:00 Hct 31.5 % (41-53) L 05/22/18 14:00 MCV 86.0 fL (80-100) 05/22/18 14:00 MCH 28.7 PG (26-34) 05/22/18 14:00 MCHC 33.4 % (30-36) 05/22/18 14:00 RDW 13.9 % (11.6-14.8) 05/22/18 14:00 Plt Count 414 X10^3/uL (150-400) H 05/22/18 14:00 Neut % (Auto) Not Reportable 05/22/18 14:00 Lymph % (Auto) Not Reportable 05/22/18 14:00 Arroyo % (Auto) Not Reportable 05/22/18 14:00 Eos % (Auto) Not Reportable 05/22/18 14:00 Baso % (Auto) Not Reportable 05/22/18 14:00 Total Counted 100 05/22/18 14:00 Seg Neutrophils % 75.0 % (38-70) H 05/22/18 14:00 Band Neutrophils % 7.0 % (3-7) 05/22/18 14:00 Lymphocytes % (Manual) 5.0 % (25-45) L 05/22/18 14:00 Atypical Lymphs % 5.0 % (-0) H 05/22/18 14:00 Monocytes % (Manual) 3.0 % (2-11) 05/22/18 14:00 Eosinophils % (Manual) 5.0 % (2-4) H 05/22/18 14:00 Metamyelocytes % 1.0 % (-0) H 05/15/18 13:59 Neutrophils # (Manual) 73600 /uL (9724-8234) H 05/22/18 14:00 Plt Morphology Comment Note 05/15/18 13:59 RBC Morphology Not Reportable 05/22/18 14:00 Polychromasia 1+ H 05/22/18 14:00 Smear Path Review 05/15/18 13:59 Sodium 136 mmol/L (137-145) L 05/22/18 14:00 Potassium 4.5 mmol/L (3.4-5.1) 05/22/18 14:00 Chloride 100 mmol/L (98-107) 05/22/18 14:00 Carbon Dioxide 25 mmol/L (22-32) 05/22/18 14:00 BUN 26 mg/dL (9-20) H 05/22/18 14:00 Creatinine 1.50 mg/dL (0.66-1.25) H 05/22/18 14:00 Estimated GFR 46.1 mL/min (>60) L 05/22/18 14:00 BUN/Creatinine Ratio 17.3 (6-22) 05/22/18 14:00 Glucose 144 mg/dL (80-110) H 05/22/18 14:00 Calcium 9.0 mg/dL (8.4-10.2) 05/22/18 14:00 Total Bilirubin 0.5 mg/dL (0.2-1.3) 05/22/18 14:00 AST 39 IU/L (17-59) 05/22/18 14:00 ALT 27 IU/L (21-72) 05/22/18 14:00 Alkaline Phosphatase 147 U/L (38-126) H 05/22/18 14:00 Total Protein 6.2 g/dL (6.3-8.2) L 05/22/18 14:00 Albumin 3.5 g/dL (3.5-5.0) 05/22/18 14:00 Globulin 2.7 g/dL (1.7-4.1) 05/22/18 14:00 Albumin/Globulin Ratio 1.3 (1.0-2.8) 05/22/18 14:00 Urine Color Yellow 05/16/18 11:10 Urine Appearance Cloudy 05/16/18 11:10 Urine pH 5.0 (4.5-8.0) 05/16/18 11:10 Ur Specific Ward 1.020 (1.000-1.035) 05/16/18 11:10 Urine Protein Trace (Negative) H 05/16/18 11:10 Urine Glucose (UA) Negative g/dL (Normal) 05/16/18 11:10 Urine Ketones Negative (NEGATIVE) 05/16/18 11:10 Urine Occult Blood Negative (Negative) 05/16/18 11:10 Urine Nitrate Negative (Negative) 05/16/18 11:10 Urine Bilirubin Negative (NEGATIVE) 05/16/18 11:10 Urine Urobilinogen 0.2 E.U./dL (0.2) 05/16/18 11:10 Ur Leukocyte Esterase Trace (NEGATIVE) H 05/16/18 11:10 Urine RBC None seen (0-5/HPF) 05/16/18 11:10 Urine WBC 1-5/hpf (0-5/HPF) 05/16/18 11:10 Ur Squamous Epith Cells Cancelled 05/15/18 15:11 Ur Transition Epith Cell Cancelled 05/15/18 15:11 Ur Renal Epithelial Cell Cancelled 05/15/18 15:11 Calcium Oxalate Crystal Cancelled 05/15/18 15:11 Uric Acid Crystals Cancelled 05/15/18 15:11 Triple Phos Crystals Cancelled 05/15/18 15:11 Other Crystals Cancelled 05/15/18 15:11 Amorphous Sediment 4+ 05/16/18 11:10 Urine Bacteria Many (>30) (None) H 05/16/18 11:10 Hyaline Casts Cancelled 05/15/18 15:11 Granular Casts Cancelled 05/15/18 15:11 RBC Casts Cancelled 05/15/18 15:11 WBC Casts Cancelled 05/15/18 15:11 Other Casts Cancelled 05/15/18 15:11 Urine Mucus Cancelled 05/15/18 15:11 Urine Trichomonas Cancelled 05/15/18 15:11 Urine Yeast Cancelled 05/15/18 15:11 Urine Sperm Cancelled 05/15/18 15:11 Ur Culture Indicated? Specimen cultured 05/16/18 11:10 Micro UA Comment Not Reportable 05/16/18 11:10 Assessment and Plan (1) Renal cell cancer Metastatic recurrent renal cell carcinoma status post 2 cycle of immunotherapy with ipilimumab and nivolumab. During his second cycle, he mounted reaction to use of Nivolumab. Here to discuss resuming the treatment. Clinically patient has been doing well except the pain problems which is associated with the recurrence of the metastatic kidney cancer. I talked with the patient and I will resume the treatment as scheduled. Plan: 1. Hold Ipilimumab/Nivolumab for now 2. 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 Plan: 1. Monitor CBC, CMP when he comes back in one week. (3) Bone metastasis Patient has multiple levels of metastasis in the vertebra according the MRI reports. And the [facility] has recommended bone targeting agents. I talked with the patient that we will consider continue with continued monitoring of the kidney function. Plan: Repeat CMP in one week and if GFR stable, will resume Zometa. (4) Pain Malignancy and metastasis related back and lower back pain. Plan: 1. Continue Morphine ER 30 mg q12h 2. Continue Oxycodone, 0 mg q4-6 hr, prn (5) Cachexia Patient has significant weight loss and appears thin and mildly cachectic. I talked with the patient that there is no medications or supplemental treatments that can increase the appetite overnight. Patient has to try to improve PO intake as much as he can. Plan: I have encouraged patient try to increase the p.o. intake for example Ensure or protein powder. (6) Nausea & vomiting Related to underlying pain, malignancy as well as possibly the immunotherapy. Plan: 1. Stop Zofran 2. Stop Reglan 3. Olazapin 5 mg - 10 mg daily 4. Ativan 0.5 mg sublingual q4-6 hr prn. (7) Leukocytosis The etiology of the leukocytosis is unclear. Pathologist's review of the peripheral blood suggests leukocytosis with absolute granulocytosis and absolute monocytosis. And the pathologist recommended to rule out myeloproliferative disorder if clinically indicated. From my point of view, patient does not have evidence of sepsis. In addition the leukocytosis existed before the use of the steroids. Once again it may be related to the malignancy itself, however myeloproliferative neoplasia needs to be excluded. Plan: 1. PB flow for leukemia 2. PB for MPN/CML, FISH 3. RTC in one week, CBC, CMP (8) Constipation Clinically I do not think there is any apparent events evidence of obstruction given that he is due able to passing gas. Plan, I recommended try magnesium hydroxide [id number] 15 cc once a day I also encourage him to use OTC lactulose 30 cc, prn (9) Dehydration Very poor po intake. Likely the reason for dehydration. At clinic, he was lying on the exam table most of the time. When he gets up, he complains of dizziness Plan: 1. NS 1000 cc iv daily x2 2. Encourage him to drink enough fluids at home.
[2018-05-22 14:17] LABS: Hematocrit 31.5 % (41-53); Hemoglobin 10.5 g/dL (13.5-17.5); Mean Corpuscular HGB Conc 33.4 % (30-36); Mean Corpuscular Hemoglobin 28.7 PG (26-34); Platelet Count 414 X10^3/uL (150-400); Red Blood Cell Count 3.66 X10^6/uL (4.5-5.9); Red Cell Distribution Width 13.9 % (11.6-14.8)
[2018-05-22 14:24] LABS: Add Manual Diff / Slide Review YES; White Blood Cell Count 30.8 X10^3/uL (4.5-11.0)
[2018-05-22 14:30] VITALS: BP 134/80; PULSE 74; RESP 18; TEMP 36.8; O2SAT 94
[2018-05-22 14:32] LABS: Alanine Aminotransferase 27 IU/L (21-72); Albumin 3.5 g/dL (3.5-5.0); Albumin Globulin Ratio 1.3 (1.0-2.8); Alkaline Phosphatase 147 U/L (38-126); Aspartate Aminotransferase 39 IU/L (17-59); BUN Creatinine Ratio 17.3 (6-22); Bilirubin Total 0.5 mg/dL (0.2-1.3); Blood Urea Nitrogen 26 mg/dL (9-20); Carbon Dioxide 25 mmol/L (22-32); Chloride 100 mmol/L (98-107); Estimated Glomerular Filt Rate 46.1 mL/min (>60); Globulin 2.7 g/dL (1.7-4.1); Glucose 144 mg/dL (80-110); HEMOLYSIS < 15 (0-50); Potassium 4.5 mmol/L (3.4-5.1); Sodium 136 mmol/L (137-145); Total Protein 6.2 g/dL (6.3-8.2)
[2018-05-22 14:59] LABS: Neutrophils Absolute Manual 25256 /uL (3000-5900); Polychromasia 1+; Total Cells Counted 100
[2018-05-22] MEDS: SODIUM CHLORIDE 0.9% 1,000 ML 1000 ML IV (15:40)
[2018-05-22] MEDS: LACTULOSE 20 GM/30 ML SOLUTION PO (16:42)
[2018-05-22] MEDS: ONDANSETRON 4 MG/2 ML INJ IM (17:06)
--- NOTE | 2018-05-23 09:17 | ONC.NAV ---
Late Entry: Visit 05/22/18 Description: HUMAN RESOURCES BENEFITS COORDINATOR met with pt/spouse/son to discuss the continued coordination of obtaining a hospital bed for pt. This HUMAN RESOURCES BENEFITS COORDINATOR provided [facility] more chart notes to support the Medicare criteria for pt's authorization of the bed. It's our hope that the hospital bed will be authorized and approved within the next few days. Pt continues to demonstrate overall decline in physical/cognitive function. reports that he is not able to track as well in memory and conversations, has poor PO intake, and requires assistance in all ADL's. He did, however, experience a boost in energy with the introduction of steroid use, however he remains in bed a lot of the time. HUMAN RESOURCES BENEFITS COORDINATOR offered continued emotional and coping support for , as well as information about hospice care, in planning for his future care needs. Plan: F/u tomorrow with [facility] to clarify delivery of the bed.
[2018-05-23] MEDS: OXYCODONE IR 5 MG TABLET 10 MG PO (10:33)
[2018-05-23] MEDS: SODIUM CHLORIDE 0.9% 1,000 ML 1000 ML IV (10:35)
[2018-05-23] MEDS: MORPHINE ER 30 MG TABLET PO (10:49)
--- NOTE | 2018-05-23 12:10 | PC.NURSE ---
Pt seen in clinic today accompanied by his . Pt's requesting to speak with Sara regarding hospice. Pt's informed this resume writer that they have decided to peruse hospice. Pt and declined labs to be drawn r/t to new plan for hospice. Triage informed Dr. Preston. Pt given pain medication for hip and lower back pain. IV fluids infused per orders. Pt A&Ox3. Pt denies chest pain and discomfort. Denies N/V. Warm blankets given for comfort during infusion. Speech clear. SBA to wheelchair. Port de-accessed.
== END 2018-05-24 12:00 | disposition home or self-care (01) ==
PROVIDERS: Family Provider Family Medicine; PCP Physician Assistant; Visit Provider Internal Medicine Hematology & Oncology
DX: C64.1 Malignant neoplasm of right kidney, except renal pelvis (principal); C79.51 Secondary malignant neoplasm of bone; E86.0 Dehydration; R11.2 Nausea with vomiting, unspecified; N18.3 Chronic kidney disease, stage 3 (moderate); R64 Cachexia
CPT/HCPCS: 36592; 80053; 81001; 85025; 87086; 94640; 94760; 96360; 96372; 96374; 96375; 96376; 96413; 96417; 99205; 99214; 99215; J2175; J2270; J2405; J2930; J7613; J9228; J9299